=== PATIENT | male | born 1955 | race Caucasian/White ===

== ENCOUNTER → 2018-05-27 07:33 | Outpatient (CLI) | payer OTHER, SELFPAY ==
[2018-05-27 08:55] LABS: Alanine Aminotransferase 38 IU/L (21-72); Albumin 4.4 g/dL (3.5-5.0); Albumin Globulin Ratio 1.6 (1.0-2.8); Alkaline Phosphatase 93 U/L (38-126); Aspartate Aminotransferase 29 IU/L (17-59); BUN Creatinine Ratio 17.7 (6-22); Bilirubin Total 0.4 mg/dL (0.2-1.3); Blood Urea Nitrogen 23 mg/dL (9-20); Calcium 8.7 mg/dL (8.4-10.2); Carbon Dioxide 27 mmol/L (22-32); Chloride 103 mmol/L (98-107); Cholesterol 178 mg/dL (140-199); Estimated Glomerular Filt Rate 55.6 mL/min (>60); Globulin 2.8 g/dL (1.7-4.1); Glucose 106 mg/dL (80-110); HDL Cholesterol 30 mg/dL (40-60); HEMOLYSIS < 15 (0-50); LDL Cholesterol Calculated 129 mg/dL (<100); Potassium 4.4 mmol/L (3.4-5.1); Sodium 139 mmol/L (137-145); Total Protein 7.2 g/dL (6.3-8.2); Triglycerides 96 mg/dL (35-150); Uric Acid 7.4 mg/dL (3.5-8.5)
[2018-05-27 09:19] LABS: Prostate Specific Antigen 9.74 ng/mL (0.10-4.00)
[2018-05-27 09:37] LABS: Vitamin B12 801 pg/mL (239-931)
== END ==
DX: I10 Essential (primary) hypertension (principal); K21.9 Gastro-esophageal reflux disease without esophagitis; M54.5 Low back pain
CPT/HCPCS: 36415; 80053; 80061; 82607; 84153; 84550

== ENCOUNTER → 2019-08-09 08:14 | Outpatient (CLI) | payer OTHER, SELFPAY ==
--- NOTE | 2019-08-09 | DI.US.S_ITS ---
PROCEDURE: US ABD AORTA ANEURYSM SCREEN INDICATIONS: PERSONAL HISTORY OF NICOTINE USE TECHNIQUE: Real time scanning was performed of the aorta and iliac arteries, with image documentation. COMPARISON: None. FINDINGS: Aorta: Proximal aortic diameter measures 2.7 cm. Mid-aorta measures 1.7 cm. Distal aortic diameter is 1.2 cm. Iliac arteries: Right common iliac artery measures 1.0 cm. Left common iliac artery measures 0.9 cm. IMPRESSION: No aneurysm identified Dictated by: Dusty Horvath M.D. on 08/09/2019 at 11:14 Approved by: Dusty Horvath M.D. on 08/09/2019 at 11:15
== END ==
PROVIDERS: PCP Physician Assistant; Referring Provider Physician Assistant; Visit Provider Physician Assistant
DX: Z13.6 Encounter for screening for cardiovascular disorders (principal); Z87.891 Personal history of nicotine dependence
CPT/HCPCS: 76706

== ENCOUNTER → 2021-11-19 08:10 | Outpatient (CLI) | payer OTHER, SELFPAY ==
--- NOTE | 2021-11-19 | DI.RAD.S_ITS ---
PROCEDURE: FL JOINT INJECTION LARGE LT INDICATIONS: PAIN IN LEFT SHOULDER COMPARISON: None. TECHNIQUE: The indications, alternatives, benefits, risks, and complications of the procedure were explained to the patient. Written informed consent was obtained and placed in the chart. The patient was placed in an appropriate position on the fluoroscopy table, and a site was chosen for percutaneous access under fluoroscopic guidance. The site was prepped and draped in a sterile fashion. Local anesthetic was administered using a 1% lidocaine solution. A hypodermic or spinal needle was then used to access the symptomatic joint. Intra-articular location of the needle tip was confirmed by injecting a small amount of contrast, followed by steroid administration. The needle was then withdrawn, and a bandage applied to the puncture site. FINDINGS: Joint injected: Left shoulder Medications injected: 4 mL of 40 mg/mL Kenalog and 0.5% Ropivacaine mixture. Patient's pain before injection: 3 out of 10. Patient's pain after injection: 0 out of 10. Complications: None. IMPRESSION: Successful fluoroscopically guided administration of steroid and anaesthetic solution into the left shoulder joint. Dictated by: Juan Manuel Brown M.D. on 11/19/2021 at 9:53 Approved by: Juan Manuel Brown M.D. on 11/19/2021 at 10:16
== END ==
PROVIDERS: PCP Physician Assistant; Referring Provider Physician Assistant; Visit Provider Physician Assistant
DX: M25.512 Pain in left shoulder (principal)
CPT/HCPCS: 20610

== ENCOUNTER 2022-06-27 11:59 | Emergency (ER) | payer OTHER, SELFPAY ==
[2022-06-27] VITALS (8 sets, daily range): BP systolic 103–119; BP diastolic 51–78; PULSE 87–102; RESP 16–30; TEMP 36.8; O2SAT 95–97
--- NOTE | 2022-06-27 12:09 | DI.RAD.S_ITS ---
PROCEDURE: XR CHEST 1V INDICATIONS: Shortness of breath TECHNIQUE: One view of the chest was acquired. COMPARISON: None. FINDINGS: Surgical changes and devices: None. Lungs and pleura: Lungs are clear. No pleural effusions or pneumothorax. Mediastinum: Mediastinal contours appear normal. Heart size is normal. Bones and chest wall: No suspicious bony lesions. Overlying soft tissues appear unremarkable. IMPRESSION: No acute process. Dictated by: Roselyn Valdes M.D. on 06/27/2022 at 11:47 Approved by: Roselyn Valdes M.D. on 06/27/2022 at 11:47
--- NOTE | 2022-06-27 12:21 | ED.SOB ---
HPI - SOB/Dyspnea <STONEY Dobbs - Last Filed: 06/27/22 14:28> General Chief Complaint: Shortness of Breath/Dyspnea Stated Complaint: difficulty breathing Time Seen by Provider: 06/27/22 12:11 Source: patient Mode of arrival: Ambulatory Limitations: no limitations History of Present Illness HPI Narrative: This is a 66-year-old gentleman who denies history of medical problems other than hypertension which he takes lisinopril for and presents to the emergency department today complaining of shortness of breath, chest pain with coughing, a cough and fatigue with last few days. He endorses having sore muscles in his neck and back, denies chest pain but endorses pain with deep inspiration and coughing. He says he has congestion, feels short of breath with exertion and states that he has been wheezing. He use his significant other's albuterol inhaler last night and states that it helped him and he felt better afterwards like he could breathe a bigger breath. He denies fevers, nausea, vomiting, diarrhea, chills, diaphoresis. He denies any radiation of his pain for which he states is only there intermittently with coughing. He [facility] care [facility], is a previous smoker, PCP is Dr. Diaz. Denies sleep apnea or CPAP use. Related Data Home Medications Medication Instructions Recorded Confirmed lisinopril 10 mg tablet 10 mg PO DAILY 06/27/22 06/27/22 Previous Rx's Medication Instructions Recorded albuterol sulfate 90 mcg/actuation 1 puff inhalation QID PRN 06/27/22 aerosol inhaler shortness of breath or wheezing #8.5 grams benzonatate 200 mg capsule 200 mg PO BID PRN cough #20 caps 06/27/22 cetirizine 10 mg tablet 10 mg PO BEDTIME PRN congestion 06/27/22 #20 tabs guaifenesin 600 mg tablet, 600 mg PO BID #20 tabs 06/27/22 extended release 12 hr (Mucinex) inhalational spacing device #1 ea 06/27/22 (Aerochamber MV spacer) Allergies Allergy/AdvReac Type Severity Reaction Status Date / Time No Known Drug Allergies Allergy Verified 06/27/22 12:14 Review of Systems <STONEY Dobbs - Last Filed: 06/27/22 14:28> Review of Systems ROS Unobtainable: All systems reviewed & are unremarkable except as noted in HPI and below Patient History <STONEY Dobbs - Last Filed: 06/27/22 14:28> Medical History (Updated 06/27/22 @ 14:00 by STONEY Dobbs) Hypertension Social History Smoking Status: Former smoker Smoking Status: Former smoker alcohol intake frequency: 0-2 drinks per day Substance Use Type: does not use Exam <STONEY Dobbs - Last Filed: 06/27/22 14:28> Narrative Exam Narrative: Reviewed vitals signs and nursing notes. General: Pleasant, sitting upright, in no acute distress, well groomed, afebrile HEENT: symmetrical facial expressions, moist mucous membranes, neck is supple CV tachycardic rate and regular rhythm, rate 102, bilateral radial pulses palpable and equal, no diaphoresis or lower extremity edema, warm extremities Respiratory: Mild tachypnea, O2 sats 93-94% on room air before DuoNeb, mild crackles versus atelectasis to the left lower lobe but clears with coughing GI: abdomen soft, nondistended, bowel sounds active throughout [place], no masses MSK: moves all extremities, no weakness, normal tone, ambulatory without deficit Skin: brisk capillary refill, without rash or wound Neuro: clear speech and normal cognition, A&O x3, GCS 15, no focal motor or sensation deficits Initial Vital Signs Initial Vital Signs: Vital Signs Temperature 98.3 F 06/27/22 12:00 Pulse Rate 102 H 06/27/22 12:00 Respiratory Rate 20 06/27/22 12:00 Blood Pressure 118/78 06/27/22 12:00 Pulse Oximetry 97 06/27/22 12:00 Oxygen Delivery Method Room Air 06/27/22 12:00 <Patel Fuentes DO - Last Filed: 06/28/22 07:53> Initial Vital Signs Initial Vital Signs: Vital Signs Temperature 98.3 F 06/27/22 12:00 Pulse Rate 102 H 06/27/22 12:00 Respiratory Rate 20 06/27/22 12:00 Blood Pressure 118/78 06/27/22 12:00 Pulse Oximetry 97 06/27/22 12:00 Oxygen Delivery Method Room Air 06/27/22 12:00 Course <FABRICE DobbsP - Last Filed: 06/27/22 14:28> Orders Ordered: Discontinued Medications Acetaminophen (Acetaminophen 325 Mg Tablet) 975 mg PO NOW ONE Stop: 06/27/22 13:27 Last Admin: 06/27/22 13:34 Dose: 975 mg Documented By: RL Albuterol/Ipratropium (Albuterol/Ipratropium 3 Ml Ampul) 3 ml INH NOW ONE Stop: 06/27/22 12:18 Last Admin: 06/27/22 12:27 Dose: 3 ml Documented By: WILLIEF Dexamethasone (Dexamethasone 10 Mg/Ml Vial) 10 mg PO NOW ONE Stop: 06/27/22 13:24 Last Admin: 06/27/22 13:34 Dose: 10 mg Documented By: RL Sodium Chloride (Normal Saline 0.9%) 1,000 mls @ 1,000 mls/hr IV BOLUS ONE Stop: 06/27/22 14:24 Last Infusion: 06/27/22 14:20 Dose: 0 mls/hr Documented By: Admin: 06/27/22 13:33 Dose: 1,000 mls/hr Documented By: RL Vital Signs Vital signs: Vital Signs - 8 hr 06/27/22 12:00 Temperature 98.3 F Pulse Rate 102 H Respiratory Rate 20 Blood Pressure 118/78 Pulse Oximetry 97 Oxygen Delivery Method Room Air <Patel Fuentes DO - Last Filed: 06/28/22 07:53> Orders Ordered: Discontinued Medications Acetaminophen (Acetaminophen 325 Mg Tablet) 975 mg PO NOW ONE Stop: 06/27/22 13:27 Last Admin: 06/27/22 13:34 Dose: 975 mg Documented By: RL Albuterol/Ipratropium (Albuterol/Ipratropium 3 Ml Ampul) 3 ml INH NOW ONE Stop: 06/27/22 12:18 Last Admin: 06/27/22 12:27 Dose: 3 ml Documented By: WILLIEF Dexamethasone (Dexamethasone 10 Mg/Ml Vial) 10 mg PO NOW ONE Stop: 06/27/22 13:24 Last Admin: 06/27/22 13:34 Dose: 10 mg Documented By: RL Sodium Chloride (Normal Saline 0.9%) 1,000 mls @ 1,000 mls/hr IV BOLUS ONE Stop: 06/27/22 14:24 Last Infusion: 06/27/22 14:20 Dose: 0 mls/hr Documented By: Admin: 06/27/22 13:33 Dose: 1,000 mls/hr Documented By: RL Vital Signs Vital signs: Vital Signs - 8 hr 06/27/22 12:00 Temperature 98.3 F Pulse Rate 102 H Respiratory Rate 20 Blood Pressure 118/78 Pulse Oximetry 97 Oxygen Delivery Method Room Air MDM - SOB/Dyspnea <STONEY Dobbs - Last Filed: 06/27/22 14:28> Lab Data 06/27/22 12:14 06/27/22 12:14 Labs: Lab Results 06/27/22 06/27/22 06/27/22 Range/Units 12:14 12:14 12:14 WBC 8.1 (4.5-11.0) X10^3/uL RBC 4.78 (4.5-5.9) X10^6/uL Hgb 14.6 (13.5-17.5) g/dL Hct 42.5 (41-53) % MCV 88.9 (80-100) fL MCH 30.6 (26-34) PG MCHC 34.4 (30-36) % RDW 12.8 (11.6-14.8) % Plt Count 198 (150-400) X10^3/uL Neut % (Auto) 70.8 (50-75) % Lymph % (Auto) 13.8 L (25-40) % [place] % (Auto) 11.9 (3-14) % Eos % (Auto) 2.9 (2-4) % Baso % (Auto) 0.6 (0-2) % Neut # (Auto) 5800 (5314-0198) /uL Lymph # (Auto) 1100 (0641-0952) /uL [place] # (Auto) 1000 H (0-900) /uL Eos # (Auto) 200 (0-450) /uL Baso # (Auto) 100 (0-100) /uL PT Cancelled INR Cancelled D-Dimer (<500) ng/ml Sodium 139 (137-145) mmol/L Potassium 3.9 (3.4-5.1) mmol/L Chloride 102 (98-107) mmol/L Carbon Dioxide 28 (22-32) mmol/L BUN 32 H (9-20) mg/dL Creatinine 1.68 H (0.66-1.25) mg/dL Estimated GFR 44 L (>60) mL/min BUN/Creatinine Ratio 19.0 (6-22) Glucose 93 (80-110) mg/dL Lactate (0.7-2.1) mmol/L Calcium 9.6 (8.4-10.2) mg/dL Total Bilirubin 0.8 (0.2-1.3) mg/dL AST 31 (17-59) IU/L ALT 33 (<50) IU/L Alkaline Phosphatase 97 (38-126) U/L Troponin I < 0.012 (0.01-0.034) ng/mL NT-Pro-B Natriuret Pep Cancelled Total Protein 7.9 (6.3-8.2) g/dL Albumin 4.5 (3.5-5.0) g/dL Globulin 3.4 (1.7-4.1) g/dL Albumin/Globulin Ratio 1.3 (1.0-2.8) Lipase (23-300) U/L 06/27/22 06/27/22 06/27/22 Range/Units 12:14 12:14 12:14 WBC (4.5-11.0) X10^3/uL RBC (4.5-5.9) X10^6/uL Hgb (13.5-17.5) g/dL Hct (41-53) % MCV (80-100) fL MCH (26-34) PG MCHC (30-36) % RDW (11.6-14.8) % Plt Count (150-400) X10^3/uL Neut % (Auto) (50-75) % Lymph % (Auto) (25-40) % [place] % (Auto) (3-14) % Eos % (Auto) (2-4) % Baso % (Auto) (0-2) % Neut # (Auto) (5235-3220) /uL Lymph # (Auto) (7859-6183) /uL [place] # (Auto) (0-900) /uL Eos # (Auto) (0-450) /uL Baso # (Auto) (0-100) /uL PT INR D-Dimer 360 (<500) ng/ml Sodium (137-145) mmol/L Potassium (3.4-5.1) mmol/L Chloride (98-107) mmol/L Carbon Dioxide (22-32) mmol/L BUN (9-20) mg/dL Creatinine (0.66-1.25) mg/dL Estimated GFR (>60) mL/min BUN/Creatinine Ratio (6-22) Glucose (80-110) mg/dL Lactate 1.4 (0.7-2.1) mmol/L Calcium (8.4-10.2) mg/dL Total Bilirubin (0.2-1.3) mg/dL AST (17-59) IU/L ALT (<50) IU/L Alkaline Phosphatase (38-126) U/L Troponin I (0.01-0.034) ng/mL NT-Pro-B Natriuret Pep Total Protein (6.3-8.2) g/dL Albumin (3.5-5.0) g/dL Globulin (1.7-4.1) g/dL Albumin/Globulin Ratio (1.0-2.8) Lipase 130 (23-300) U/L 06/27/22 Range/Units 13:40 WBC (4.5-11.0) X10^3/uL RBC (4.5-5.9) X10^6/uL Hgb (13.5-17.5) g/dL Hct (41-53) % MCV (80-100) fL MCH (26-34) PG MCHC (30-36) % RDW (11.6-14.8) % Plt Count (150-400) X10^3/uL Neut % (Auto) (50-75) % Lymph % (Auto) (25-40) % [place] % (Auto) (3-14) % Eos % (Auto) (2-4) % Baso % (Auto) (0-2) % Neut # (Auto) (0099-3756) /uL Lymph # (Auto) (0067-8275) /uL [place] # (Auto) (0-900) /uL Eos # (Auto) (0-450) /uL Baso # (Auto) (0-100) /uL PT INR D-Dimer (<500) ng/ml Sodium (137-145) mmol/L Potassium (3.4-5.1) mmol/L Chloride (98-107) mmol/L Carbon Dioxide (22-32) mmol/L BUN (9-20) mg/dL Creatinine (0.66-1.25) mg/dL Estimated GFR (>60) mL/min BUN/Creatinine Ratio (6-22) Glucose (80-110) mg/dL Lactate (0.7-2.1) mmol/L Calcium (8.4-10.2) mg/dL Total Bilirubin (0.2-1.3) mg/dL AST (17-59) IU/L ALT (<50) IU/L Alkaline Phosphatase (38-126) U/L Troponin I 0.012 (0.01-0.034) ng/mL NT-Pro-B Natriuret Pep Total Protein (6.3-8.2) g/dL Albumin (3.5-5.0) g/dL Globulin (1.7-4.1) g/dL Albumin/Globulin Ratio (1.0-2.8) Lipase (23-300) U/L Imaging Data Chest x-ray: Radiologist's Impression: PROCEDURE:? XR CHEST 1V ? INDICATIONS:? Shortness of breath ? TECHNIQUE:? One view of the chest was acquired.? ? COMPARISON:? None. ? FINDINGS:? ? Surgical changes and devices:? None.? ? Lungs and pleura:? Lungs are clear.? No pleural effusions or pneumothorax.? ? Mediastinum:? Mediastinal contours appear normal.? Heart size is normal.? ? Bones and chest wall:? No suspicious bony lesions.? Overlying soft tissues appear unremarkable.? ? IMPRESSION:? No acute process. ? ? Dictated by: Roselyn Valdes M.D. on 06/27/2022 at 11:47 ? ? Approved by: Roselyn Valdes M.D. on 06/27/2022 at 11:47 ? ECG Data Interpretation: EKG independently reviewed by myself at [1220] reveals sinus tachycardia at 99, normal axis, nonspecific ST changes, regular intervals. No STEMI or acute ischemic changes. No prior EKGs on record MDM Narrative Medical decision making narrative: Chief Complaint: Shortness of breath Independent historian: Patient Multiple etiologies for patient's symptoms considered including, but not limited to: Acute viral illness, bronchitis, pneumonia, COPD exacerbation, CHF exacerbation, pleural effusions, pneumonitis, PE, ACS, dehydration, allergic reaction I have independently reviewed the patient's vital signs and nursing notes as well as prior records if available. Pertinent records include: Patient receives his care at the [facility], no prior medical notes for review, patient states he is only had joint steroid injection here My EKG interpretation: Sinus tachycardia rate 99, no acute ischemia My interpretation of lab studies: CBC with lymphopenia suggesting possible viral illness, CMP shows worsening creatinine last result in 2019 of 1.3 with a BUN of 23 at that time, today's BUN is 32 with a creatinine of 1.68 and a GFR 44. Ordered 1 L of normal saline, his lactate is 1.4, initial troponin is not elevated at 0.012, repeat troponin is not elevated, D-dimer of 360. Normal lipase My interpretation of imaging: Chest x-ray is negative for focal opacity, pleural effusion or pneumothorax Consultations: After DuoNeb, patient reports that he feels much better and is able to take deep breaths, denies any chest tightness, states that he is breathing much more comfortably now. He is tolerating p.o., has a wet sounding cough Patient's heart score is3 points, for age and 1 risk factor: Hypertension Course of care: DuoNeb has patient's symptoms improve, he was given Decadron, 1 L of normal saline, he refused the COVID test on multiple occasions stating that he does not have the symptoms. I believe he has a upper respiratory viral illness since symptoms related to this. He is not hypoxic, was discharged home with an MDI of albuterol and a spacer. Social considerations that may affect disposition: none Questions are addressed and there is agreement with the plan and for follow-up. I consulted with the ED attending physician Dr. Fuentes as needed for higher level of care considerations and they were available for discussion and recommendations regarding plan of care and diagnostic testing. Patient is appropriate for outpatient management. <Patel Fuentes, DO - Last Filed: 06/28/22 07:53> Lab Data Labs: Lab Results 06/27/22 06/27/22 06/27/22 Range/Units 12:14 12:14 12:14 WBC 8.1 (4.5-11.0) X10^3/uL RBC 4.78 (4.5-5.9) X10^6/uL Hgb 14.6 (13.5-17.5) g/dL Hct 42.5 (41-53) % MCV 88.9 (80-100) fL MCH 30.6 (26-34) PG MCHC 34.4 (30-36) % RDW 12.8 (11.6-14.8) % Plt Count 198 (150-400) X10^3/uL Neut % (Auto) 70.8 (50-75) % Lymph % (Auto) 13.8 L (25-40) % [place] % (Auto) 11.9 (3-14) % Eos % (Auto) 2.9 (2-4) % Baso % (Auto) 0.6 (0-2) % Neut # (Auto) 5800 (7612-6706) /uL Lymph # (Auto) 1100 (0763-2352) /uL [place] # (Auto) 1000 H (0-900) /uL Eos # (Auto) 200 (0-450) /uL Baso # (Auto) 100 (0-100) /uL PT Cancelled INR Cancelled D-Dimer (<500) ng/ml Sodium 139 (137-145) mmol/L Potassium 3.9 (3.4-5.1) mmol/L Chloride 102 (98-107) mmol/L Carbon Dioxide 28 (22-32) mmol/L BUN 32 H (9-20) mg/dL Creatinine 1.68 H (0.66-1.25) mg/dL Estimated GFR 44 L (>60) mL/min BUN/Creatinine Ratio 19.0 (6-22) Glucose 93 (80-110) mg/dL Lactate (0.7-2.1) mmol/L Calcium 9.6 (8.4-10.2) mg/dL Total Bilirubin 0.8 (0.2-1.3) mg/dL AST 31 (17-59) IU/L ALT 33 (<50) IU/L Alkaline Phosphatase 97 (38-126) U/L Troponin I < 0.012 (0.01-0.034) ng/mL NT-Pro-B Natriuret Pep Cancelled Total Protein 7.9 (6.3-8.2) g/dL Albumin 4.5 (3.5-5.0) g/dL Globulin 3.4 (1.7-4.1) g/dL Albumin/Globulin Ratio 1.3 (1.0-2.8) Lipase (23-300) U/L 06/27/22 06/27/22 06/27/22 Range/Units 12:14 12:14 12:14 WBC (4.5-11.0) X10^3/uL RBC (4.5-5.9) X10^6/uL Hgb (13.5-17.5) g/dL Hct (41-53) % MCV (80-100) fL MCH (26-34) PG MCHC (30-36) % RDW (11.6-14.8) % Plt Count (150-400) X10^3/uL Neut % (Auto) (50-75) % Lymph % (Auto) (25-40) % [place] % (Auto) (3-14) % Eos % (Auto) (2-4) % Baso % (Auto) (0-2) % Neut # (Auto) (2333-5765) /uL Lymph # (Auto) (2487-8813) /uL [place] # (Auto) (0-900) /uL Eos # (Auto) (0-450) /uL Baso # (Auto) (0-100) /uL PT INR D-Dimer 360 (<500) ng/ml Sodium (137-145) mmol/L Potassium (3.4-5.1) mmol/L Chloride (98-107) mmol/L Carbon Dioxide (22-32) mmol/L BUN (9-20) mg/dL Creatinine (0.66-1.25) mg/dL Estimated GFR (>60) mL/min BUN/Creatinine Ratio (6-22) Glucose (80-110) mg/dL Lactate 1.4 (0.7-2.1) mmol/L Calcium (8.4-10.2) mg/dL Total Bilirubin (0.2-1.3) mg/dL AST (17-59) IU/L ALT (<50) IU/L Alkaline Phosphatase (38-126) U/L Troponin I (0.01-0.034) ng/mL NT-Pro-B Natriuret Pep Total Protein (6.3-8.2) g/dL Albumin (3.5-5.0) g/dL Globulin (1.7-4.1) g/dL Albumin/Globulin Ratio (1.0-2.8) Lipase 130 (23-300) U/L 06/27/22 Range/Units 13:40 WBC (4.5-11.0) X10^3/uL RBC (4.5-5.9) X10^6/uL Hgb (13.5-17.5) g/dL Hct (41-53) % MCV (80-100) fL MCH (26-34) PG MCHC (30-36) % RDW (11.6-14.8) % Plt Count (150-400) X10^3/uL Neut % (Auto) (50-75) % Lymph % (Auto) (25-40) % [place] % (Auto) (3-14) % Eos % (Auto) (2-4) % Baso % (Auto) (0-2) % Neut # (Auto) (3408-5719) /uL Lymph # (Auto) (1162-5591) /uL [place] # (Auto) (0-900) /uL Eos # (Auto) (0-450) /uL Baso # (Auto) (0-100) /uL PT INR D-Dimer (<500) ng/ml Sodium (137-145) mmol/L Potassium (3.4-5.1) mmol/L Chloride (98-107) mmol/L Carbon Dioxide (22-32) mmol/L BUN (9-20) mg/dL Creatinine (0.66-1.25) mg/dL Estimated GFR (>60) mL/min BUN/Creatinine Ratio (6-22) Glucose (80-110) mg/dL Lactate (0.7-2.1) mmol/L Calcium (8.4-10.2) mg/dL Total Bilirubin (0.2-1.3) mg/dL AST (17-59) IU/L ALT (<50) IU/L Alkaline Phosphatase (38-126) U/L Troponin I 0.012 (0.01-0.034) ng/mL NT-Pro-B Natriuret Pep Total Protein (6.3-8.2) g/dL Albumin (3.5-5.0) g/dL Globulin (1.7-4.1) g/dL Albumin/Globulin Ratio (1.0-2.8) Lipase (23-300) U/L Discharge Plan Departure Patient Disposition: Home Clinical Impression: Viral upper respiratory infection, Shortness of breath Instructions: DI for Viral Upper Respiratory Infection -- Adult, DI for Shortness of Breath Activity Restrictions/Additional Instructions: *You have been diagnosed with an upper respiratory viral infection which sister to get better in a couple of days. Please take Zyrtec nightly for your congestion and phlegm. Please use Mucinex for productive cough, albuterol for shortness of breath and use with a spacer. Please stay hydrated, return to the emergency department for fever, chills, worsening shortness of breath. I have given you Tessalon Perles to use for frequent cough. Please come back if you get worse, hope you feel better soon. *What to do: *Please continue to take your regular medications as directed. [ x] New medication prescriptions sent to your pharmacy: [[facility] ] [ ] New medication written as a paper prescription [ ] No new medications given *Please call and schedule follow up with your primary care provider in 2-3 days, at least for an update. Let them know you were seen in the Emergency Department for the above problem. We will electronically transmit a record of today's note if your PCP or specialist is in our system. *If you do not have a primary care provider please contact [phone] to establish care with one of the [facility] primary care providers. *Return to the Emergency Department for worsening symptoms, inability to keep liquids down, fever greater than 101F, chills, or other concerning symptom. Prescriptions: New cetirizine 10 mg tablet 10 mg PO BEDTIME PRN (Reason: congestion) Qty: 20 0RF guaifenesin [Mucinex] 600 mg tablet extended release 12hr 600 mg PO BID Qty: 20 0RF benzonatate 200 mg capsule 200 mg PO BID PRN (Reason: cough) Qty: 20 0RF albuterol sulfate 90 mcg/actuation HFA aerosol inhaler 1 puff inhalation QID PRN (Reason: shortness of breath or wheezing) Qty: 8.5 1RF (DME) Aerochamber MV Spacer See Rx Instructions .Route Qty: 1 0RF Rx Instructions: As directed No Action lisinopril 10 mg tablet 10 mg PO DAILY Patient Comments: TAKE 1 TABLET BY MOUTH EVERY DAY Referrals: Brock Diaz PA-C [Primary Care Provider] - Stand Alone Forms: Patient Portal/API <Patel Fuentes DO - Last Filed: 06/28/22 07:53> Cosign ED Attending Natalioature Attestation: I was immediately available in the department for consultation. Documentation has been reviewed. I agree with assessment and plan.
[2022-06-27 12:27] LABS: Add Manual Diff / Slide Review NO; Basophils Absolute Auto 100 /uL (0-100); Basophils Percent Auto 0.6 % (0-2); Eosinophils Absolute Auto 200 /uL (0-450); Eosinophils Percent Auto 2.9 % (2-4); Hematocrit 42.5 % (41-53); Hemoglobin 14.6 g/dL (13.5-17.5); Lymphocytes Absolute Auto 1100 /uL (1100-4500); Lymphocytes Percent Auto 13.8 % (25-40); Mean Corpuscular HGB Conc 34.4 % (30-36); Mean Corpuscular Hemoglobin 30.6 PG (26-34); Mean Corpuscular Volume 88.9 fL (80-100); Monocytes Absolute Auto 1000 /uL (0-900); Monocytes Percent Auto 11.9 % (3-14); Neutrophils Absolute Auto 5800 /uL (1500-7000); Neutrophils Percent Auto 70.8 % (50-75); Platelet Count 198 X10^3/uL (150-400); Red Blood Cell Count 4.78 X10^6/uL (4.5-5.9); Red Cell Distribution Width 12.8 % (11.6-14.8); White Blood Cell Count 8.1 X10^3/uL (4.5-11.0)
[2022-06-27] MEDS: ALBUTEROL/IPRATROPIUM 3 ML AMPUL INH (12:27)
[2022-06-27 12:35] LABS: Lactate (Lactic Acid) 1.4 mmol/L (0.7-2.1); Lipase 130 U/L (23-300)
[2022-06-27 12:36] LABS: Alanine Aminotransferase 33 IU/L (<50); Albumin 4.5 g/dL (3.5-5.0); Albumin Globulin Ratio 1.3 (1.0-2.8); Alkaline Phosphatase 97 U/L (38-126); Aspartate Aminotransferase 31 IU/L (17-59); Bilirubin Total 0.8 mg/dL (0.2-1.3); Blood Urea Nitrogen 32 mg/dL (9-20); Calcium 9.6 mg/dL (8.4-10.2); Carbon Dioxide 28 mmol/L (22-32); Chloride 102 mmol/L (98-107); Estimated Glomerular Filt Rate 44 mL/min (>60); Globulin 3.4 g/dL (1.7-4.1); Glucose 93 mg/dL (80-110); HEMOLYSIS < 15 (0-50); Potassium 3.9 mmol/L (3.4-5.1); Sodium 139 mmol/L (137-145); Total Protein 7.9 g/dL (6.3-8.2)
[2022-06-27 12:48] LABS: Troponin I < 0.012 ng/mL (0.01-0.034)
[2022-06-27] MEDS: SODIUM CHLORIDE 0.9% 1,000 ML 1000 ML IV (13:33)
[2022-06-27] MEDS: DEXAMETHASONE 10 MG/ML VIAL PO (13:34)
[2022-06-27] MEDS: ACETAMINOPHEN 325 MG TABLET 975 MG PO (13:34)
[2022-06-27 13:42] LABS: D Dimer 360 ng/ml (<500)
[2022-06-27 14:09] LABS: Troponin I 0.012 ng/mL (0.01-0.034)
== END 2022-06-27 14:25 | disposition home or self-care (01) ==
PROVIDERS: Emergency Medicine; Emergency Provider Nurse Practitioner Critical Care Medicine; PCP Physician Assistant
DX: J06.9 Acute upper respiratory infection, unspecified (principal); R06.02 Shortness of breath
CPT/HCPCS: 36415; 71045; 80053; 83605; 83690; 84484; 85025; 85379; 93005; 94150; 94640; 99284; 99285; J1100

== ENCOUNTER → 2022-09-17 13:17 | Outpatient (CLI) | payer OTHER, SELFPAY | PROVIDERS: Family Provider Physician Assistant; PCP Physician Assistant; Referring Provider Physician Assistant; Visit Provider Physician Assistant | DX: R20.2 Paresthesia of skin (principal) | CPT/HCPCS: 95886; 95910 ==

== ENCOUNTER → 2022-10-20 07:45 | Outpatient (CLI) | payer OTHER, SELFPAY ==
--- NOTE | 2022-10-20 | DI.US.S_ITS ---
PROCEDURE: US ABDOMEN LIMITED INDICATIONS: UMBILICUS LUMP TECHNIQUE: Real-time focused scanning was performed of the abdomen, with image documentation. COMPARISON: None. FINDINGS: Fat containing reducible midline hernia is present. Neck measures 5.7 mm. IMPRESSION: Fat containing reducible ventral hernia. Dictated by: Susan Pelayo M.D. on 10/20/2022 at 16:06 Approved by: Susan Pelayo M.D. on 10/20/2022 at 16:07
== END ==
PROVIDERS: Family Provider Physician Assistant; PCP Physician Assistant; Referring Provider Physician Assistant; Visit Provider Physician Assistant
DX: K43.9 Ventral hernia without obstruction or gangrene (principal)
CPT/HCPCS: 76705

== ENCOUNTER 2024-04-10 19:16 | Emergency (ER) | payer OTHER, SELFPAY ==
[2024-04-10] VITALS (7 sets, daily range): BP systolic 133–138; BP diastolic 76–87; PULSE 92–104; RESP 17; TEMP 37.1; O2SAT 94–99; BMI 29.9
--- NOTE | 2024-04-10 20:12 | EKG_ITS ---
[place] [id number] [place] [id number] Test Date: 2024-04-10 Pat Name: Adrian Samuels Department: [facility] Room: Gender: Male [place] [employer] Person: MC MATHEW : 1955 Requested By: Order Number: [id number] Reading MD: Leoncio Hawk Measurements Intervals Cornelius Rate: 102 P: 59 MI: 146 QRS: -45 QRSD: 96 T: 53 QT: 372 QTc: 484 Interpretive Statements Sinus tachycardia with premature atrial complexes Pulmonary disease pattern Left anterior fascicular block Cannot rule out Inferior infarct , age undetermined Electronically Signed On 04-11-2024 18:28:45 PST by Leoncio Hawk
[2024-04-10 20:24] LABS: Add Manual Diff / Slide Review NO; Basophils Absolute Auto 100 /uL (0-100); Eosinophils Absolute Auto 200 /uL (0-450); Eosinophils Percent Auto 1.8 % (2-4); Hematocrit 41.7 % (41-53); Hemoglobin 14.4 g/dL (13.5-17.5); Lymphocytes Absolute Auto 2000 /uL (1100-4500); Lymphocytes Percent Auto 20.2 % (25-40); Mean Corpuscular HGB Conc 34.5 % (30-36); Mean Corpuscular Hemoglobin 29.6 PG (26-34); Mean Corpuscular Volume 85.9 fL (80-100); Monocytes Absolute Auto 900 /uL (0-900); Monocytes Percent Auto 8.7 % (3-14); Neutrophils Absolute Auto 6800 /uL (1500-7000); Neutrophils Percent Auto 68.3 % (50-75); Platelet Count 252 X10^3/uL (150-400); Red Blood Cell Count 4.86 X10^6/uL (4.5-5.9); Red Cell Distribution Width 13.6 % (11.6-14.8)
[2024-04-10 20:36] LABS: Alanine Aminotransferase 30 IU/L (<50); Albumin 4.5 g/dL (3.5-5.0); Albumin Globulin Ratio 1.2 (1.0-2.8); Alkaline Phosphatase 273 U/L (38-126); Aspartate Aminotransferase 36 IU/L (17-59); BUN Creatinine Ratio 17.7 (6-22); Bilirubin Total 0.6 mg/dL (0.2-1.3); Blood Urea Nitrogen 22 mg/dL (9-20); Calcium 9.1 mg/dL (8.4-10.2); Carbon Dioxide 26 mmol/L (22-32); Chloride 98 mmol/L (98-107); Estimated Glomerular Filt Rate > 60 mL/min (>60); Globulin 3.8 g/dL (1.7-4.1); Glucose 123 mg/dL (80-110); HEMOLYSIS < 15 (0-50); Lipase 98 U/L (23-300); Potassium 3.3 mmol/L (3.4-5.1); Sodium 136 mmol/L (137-145); Total Protein 8.3 g/dL (6.3-8.2)
--- NOTE | 2024-04-10 22:40 | ED.ABDPAIN ---
HPI - Abdominal Pain General Chief Complaint: Abdominal Pain Stated Complaint: possible kidney infec? back and abd pain Time Seen by Provider: 04/10/24 22:40 Source: patient Mode of arrival: Ambulatory History of Present Illness HPI narrative: Is a 68-year-old male history of TURP now self catheterizations, hypertension presenting today with variety of symptoms. He reports that for the last couple days he has had pinpoint left-sided pain. He was just treated for a UTI he was and 1 antibiotic he just changed it over to amoxicillin they report that he finished the amoxicillin. No fever or chills. He also reports that started having some leg twitching more in the left than the right. No significant back pain. No fever or chills. Initially was sent to the ED to rule out kidney infection with his recent UTI. He was ongoing shoulder pain and neck pain which is chronic. I do not really want opiate medication he does not respond well to it. Related Data Home Medications Medication Instructions Recorded Confirmed lisinopril 10 mg tablet 10 mg PO DAILY 06/27/22 06/27/22 Previous Rx's Medication Instructions Recorded albuterol sulfate 90 mcg/actuation 1 puff inhalation QID PRN 06/27/22 aerosol inhaler shortness of breath or wheezing #8.5 grams benzonatate 200 mg capsule 200 mg PO BID PRN cough #20 caps 06/27/22 cetirizine 10 mg tablet 10 mg PO BEDTIME PRN congestion 06/27/22 #20 tabs guaifenesin 600 mg tablet, 600 mg PO BID #20 tabs 06/27/22 extended release 12 hr (Mucinex) inhalational spacing device #1 ea 06/27/22 (Aerochamber MV spacer) Allergies Allergy/AdvReac Type Severity Reaction Status Date / Time No Known Drug Allergies Allergy Verified 06/27/22 12:14 Patient History Medical History (Updated 04/10/24 @ 23:55 by Steph Anderson DO) Hypertension Social History Smoking Status: Former smoker Smoking Status: Former smoker alcohol intake frequency: 0-2 drinks per day Exam Initial Vital Signs Initial Vital Signs: Vital Signs Temperature 98.7 F 04/10/24 19:42 Pulse Rate 95 H 04/10/24 19:42 Respiratory Rate 17 04/10/24 19:42 Blood Pressure 133/87 04/10/24 19:42 Pulse Oximetry 99 04/10/24 19:42 Oxygen Delivery Method Room Air 04/10/24 19:42 GENERAL: Alert well-appearing 68-year-old male and in [no acute] distress. HEENT: Head atraumatic,EOMI, pupils reactive, face symmetric, [moist] mucous membranes CARDIOVASCULAR: Regular rate and rhythm without murmurs, rubs or gallops. RESPIRATORY: Breath sounds equal bilaterally, no wheezes rales or rhonchi. ABDOMEN: Soft, left side lateral pain pinpoint to touch no left lower quadrant pain no right lower quadrant pain no guarding no rebound : No CVA tenderness EXTREMITIES: Normal range of motion, no clubbing or edema. Neurovascularly intact Peripheral pulse of left leg is felt foot is warm NEUROLOGICAL: Alert and oriented x4.Normal gait and speech. Cranial nerves II through XII grossly intact. Involuntary muscle spasm of legs bilaterally SKIN: Warm, dry, no laceration, no petechiae, no rashes or lesions. Course Orders Ordered: ED Orders 04/10/24 19:58 EKG-12 Lead Stat 04/10/24 20:10 Complete Blood Count AUTO DIFF Stat Comprehensive Metabolic Panel Stat Lipase Stat 04/10/24 22:50 CT abdomen pelvis w con Stat Discontinued Medications Ketorolac Tromethamine (Ketorolac 30 Mg/Ml Vial) 15 mg IV NOW ONE Stop: 04/10/24 22:51 Last Admin: 04/10/24 23:12 Dose: 15 mg Documented By: Ondansetron HCl (Ondansetron 4 Mg/2 Ml Inj) 4 mg IV NOW PRN PRN Reason: Nausea And Vomiting Last Admin: 04/10/24 23:12 Dose: 4 mg Documented By: Ondansetron HCl (Ondansetron 4 Mg Odt) 4 mg PO NOW PRN PRN Reason: Nausea And Vomiting Vital Signs Vital signs: Vital Signs - 8 hr 04/10/24 21:50 04/10/24 21:51 04/10/24 21:51 Pulse Rate 98 H 97 H Blood Pressure 138/76 Pulse Oximetry 98 97 04/10/24 22:00 04/10/24 22:30 04/10/24 23:09 Pulse Rate 92 H 92 H Blood Pressure Pulse Oximetry 96 96 96 04/10/24 23:35 04/11/24 00:00 04/11/24 00:10 Pulse Rate 104 H 95 H Blood Pressure 138/76 Pulse Oximetry 94 94 MDM - Abdominal Pain Lab Data 04/10/24 20:10 04/10/24 20:10 Labs: Lab Results 04/10/24 Range/Units 20:10 WBC 10.0 (4.5-11.0) X10^3/uL RBC 4.86 (4.5-5.9) X10^6/uL Hgb 14.4 (13.5-17.5) g/dL Hct 41.7 (41-53) % MCV 85.9 (80-100) fL MCH 29.6 (26-34) PG MCHC 34.5 (30-36) % RDW 13.6 (11.6-14.8) % Plt Count 252 (150-400) X10^3/uL Neut % (Auto) 68.3 (50-75) % Lymph % (Auto) 20.2 L (25-40) % [place] % (Auto) 8.7 (3-14) % Eos % (Auto) 1.8 L (2-4) % Baso % (Auto) 1.0 (0-2) % Neut # (Auto) 6800 (8783-1422) /uL Lymph # (Auto) 2000 (5496-5861) /uL [place] # (Auto) 900 (0-900) /uL Eos # (Auto) 200 (0-450) /uL Baso # (Auto) 100 (0-100) /uL Sodium 136 L (137-145) mmol/L Potassium 3.3 L (3.4-5.1) mmol/L Chloride 98 (98-107) mmol/L Carbon Dioxide 26 (22-32) mmol/L BUN 22 H (9-20) mg/dL Creatinine 1.24 (0.66-1.25) mg/dL Estimated GFR > 60 (>60) mL/min BUN/Creatinine Ratio 17.7 (6-22) Glucose 123 H (80-110) mg/dL Calcium 9.1 (8.4-10.2) mg/dL Total Bilirubin 0.6 (0.2-1.3) mg/dL AST 36 (17-59) IU/L ALT 30 (<50) IU/L Alkaline Phosphatase 273 H (38-126) U/L Total Protein 8.3 H (6.3-8.2) g/dL Albumin 4.5 (3.5-5.0) g/dL Globulin 3.8 (1.7-4.1) g/dL Albumin/Globulin Ratio 1.2 (1.0-2.8) Lipase 98 (23-300) U/L Point of care testing: Urine Dip Bedside Urine Glucose Negative Bedside Urine Bilirubin - Negative Bedside Urine Ketone - Negative Urine Specific [place] 1.010 Bedside Urine Occult Blood - Negative Bedside Urine pH 6.0 Bedside Urine Protein - Negative Bedside Urine Urobilinogen - Negative Bedside Urine Nitrite - Negative Bedside Urine Leukocytes - Negative Esterase Imaging Data CT scan - abdomen/pelvis: Radiologist's Impression: PROCEDURE: CT ABDOMEN PELVIS W CON INDICATIONS: left flank pain TECHNIQUE: After the administration of intravenous contrast, axial sections acquired from the lung bases to the pubic symphysis. Coronal and sagittal reformats were performed. For radiation dose reduction, the following was used: automated exposure control, adjustment of mA and/or kV according to patient size. COMPARISON: None. FINDINGS: Image quality: Diagnostic. Lower Chest: No significant findings. ABDOMEN: Liver: No solid mass. Mild hepatic steatosis and slightly lobulated liver contour is seen. Gallbladder: No radiopaque gallstones or wall thickening. Biliary ducts: No biliary dilation. Pancreas: No ductal dilation. Spleen: Size is within normal limits. Adrenal Glands: No adrenal nodules. Kidneys and Ureters: There is mild left-sided hydronephrosis and hydroureter extending to the level of left UVJ . Mild bilateral perinephric fat stranding is seen. No right-sided renal stones or hydronephrosis. Stomach and Bowel: There is no bowel obstruction. No gastric or small bowel wall thickening. Appendix is not definitively seen. No focal inflammatory changes are seen in right lower quadrant abdomen. Extensive descending colon and sigmoid colon diverticulosis is seen without focal colonic wall thickening or pericolonic fat stranding. Peritoneum: No abnormal intraperitoneal fluid. No free air. Ventral Wall: No significant ventral hernia. Abdominal Nodes: No retroperitoneal or mesenteric adenopathy by size criteria. Vessels: Aorta and inferior vena cava are normal in size. PELVIS: Pelvic Organs: Enlarged prostate gland with mass effect on floor of urinary bladder is seen. Bladder: No bladder wall thickening, accounting for underdistention. Faint 1-2 mm hyperdensity in dependent portion of urinary bladder just distal to left UVJ is noted series 2, image 122. Pelvic Nodes: No enlarged lymph nodes. Miscellaneous: No inguinal hernias are seen. Bones: No aggressive osseous abnormality. IMPRESSION: 1. Finding may indicate a passed tiny 1-2 mm left-sided renal stone with mild residual left-sided hydronephrosis and hydroureter. Nonspecific mild bilateral perinephric fat stranding. No right-sided hydronephrosis or hydroureter. 2. Normal appearing urinary bladder. Enlarged prostate gland with mass effect on floor of urinary bladder. 3. Extensive colonic diverticulosis without CT evidence of acute diverticulitis. No free fluid or free air. Dictated by: Juan Manuel Brown M.D. on 04/10/2024 at 23:19 Approved by: Juan Manuel Brown M.D. on 04/10/2024 at 23:28 ECG Data Attestation: I personally reviewed and interpreted this ECG as follows: Prior ECG tracings: available for review Interpretation: Sinus rhythm rate 102 NV interval 146 QRS 96 QTC 484 PACs noted artifact noted no acute ST changes similar to prior MDM Narrative Medical decision making narrative: MDM CC: Abdominal pain Complicating co-morbidities: TURP self catheterizations Data collected from: Medical records reviewed: Minimal records available Differential considered: Musculoskeletal nephrolithiasis diverticulitis constipation Exam documented above, pertinent findings include: Pinpoint tenderness left-sided pain Lab Test results independently reviewed as above. Pertinent findings: No leukocytosis WBC 10 no anemia Sodium 136 potassium 3.3 chloride 98 carbon dioxide 26 BUN 22 creatinine 1.24 glucose 123 Bilirubin liver enzymes within normal limits Urinalysis negative for UTI Independently reviewed EKG as above no acute ischemia Imaging studies independently reviewed: CT abdomen pelvis shows possibly recently passed kidney stone 1-2 mm. Perinephric stranding Consultations: none Treatments: Toradol Re-evaluations: Feeling a little better Discussion: Patient is 68-year-old male who has urinary retention history of TURP self catheterizations recent UTI presenting to day with pinpoint left flank pain. It is reproducible to palpation. He reports his sometimes it is worse with movement. Pain is overall nonradiating. CT suggests possibly recent passed kidney stone however this does clinically correlate. Pain is really pinpoint lateral side he has no flank pain. Blood work has been reviewed which is overall reassuring no significant leukocytosis urinalysis also negative for infection. I do not think he is acute pyelonephritis. He just finished antibiotics would hold off further antibiotics for now. Patient and agree to this. He does have multiple other medical issues he does actually have some muscle twitching and leg shaking noted in the ED which they state is new. No clear explanation for this. However unlikely related to his abdominal discomfort. Reglan feet are warm with distal pedal pulses. This seems to be a muscle tremor. Discharge Plan Departure Patient Disposition: Home Clinical Impression: Abdominal pain Instructions: DI for Abdominal Pain-Adult Activity Restrictions/Additional Instructions: *You have been diagnosed with abdominal pain *What to do: At this time unclear what is causing your pain. I do think it might be musculoskeletal. CT did say possible kidney stone. No need for antibiotics at this time *Continue to take medications as directed *Follow up with your primary care provider in 2-3 days or call [phone] *Return to ER if you should have increasing abdominal pain nausea vomiting fever bloody stool [or] any new, worsening or concerning symptoms Prescriptions: No Action lisinopril 10 mg tablet 10 mg PO DAILY Patient Comments: TAKE 1 TABLET BY MOUTH EVERY DAY cetirizine 10 mg tablet 10 mg PO BEDTIME PRN (Reason: congestion) Qty: 20 0RF guaifenesin [Mucinex] 600 mg tablet extended release 12hr 600 mg PO BID Qty: 20 0RF benzonatate 200 mg capsule 200 mg PO BID PRN (Reason: cough) Qty: 20 0RF albuterol sulfate 90 mcg/actuation HFA aerosol inhaler 1 puff inhalation QID PRN (Reason: shortness of breath or wheezing) Qty: 8.5 1RF (DME) Aerochamber MV Spacer See Rx Instructions .Route Qty: 1 0RF Rx Instructions: As directed Referrals: Brock Diaz PA-C [Primary Care Provider] - Stand Alone Forms: Patient Portal/API/Survey
--- NOTE | 2024-04-10 22:50 | DI.CT.S_ITS ---
PROCEDURE: CT ABDOMEN PELVIS W CON INDICATIONS: left flank pain TECHNIQUE: After the administration of intravenous contrast, axial sections acquired from the lung bases to the pubic symphysis. Coronal and sagittal reformats were performed. For radiation dose reduction, the following was used: automated exposure control, adjustment of mA and/or kV according to patient size. COMPARISON: None. FINDINGS: Image quality: Diagnostic. Lower Chest: No significant findings. ABDOMEN: Liver: No solid mass. Mild hepatic steatosis and slightly lobulated liver contour is seen. Gallbladder: No radiopaque gallstones or wall thickening. Biliary ducts: No biliary dilation. Pancreas: No ductal dilation. Spleen: Size is within normal limits. Adrenal Glands: No adrenal nodules. Kidneys and Ureters: There is mild left-sided hydronephrosis and hydroureter extending to the level of left UVJ . Mild bilateral perinephric fat stranding is seen. No right-sided renal stones or hydronephrosis. Stomach and Bowel: There is no bowel obstruction. No gastric or small bowel wall thickening. Appendix is not definitively seen. No focal inflammatory changes are seen in right lower quadrant abdomen. Extensive descending colon and sigmoid colon diverticulosis is seen without focal colonic wall thickening or pericolonic fat stranding. Peritoneum: No abnormal intraperitoneal fluid. No free air. Ventral Wall: No significant ventral hernia. Abdominal Nodes: No retroperitoneal or mesenteric adenopathy by size criteria. Vessels: Aorta and inferior vena cava are normal in size. PELVIS: Pelvic Organs: Enlarged prostate gland with mass effect on floor of urinary bladder is seen. Bladder: No bladder wall thickening, accounting for underdistention. Faint 1-2 mm hyperdensity in dependent portion of urinary bladder just distal to left UVJ is noted series 2, image 122. Pelvic Nodes: No enlarged lymph nodes. Miscellaneous: No inguinal hernias are seen. Bones: No aggressive osseous abnormality. IMPRESSION: 1. Finding may indicate a passed tiny 1-2 mm left-sided renal stone with mild residual left-sided hydronephrosis and hydroureter. Nonspecific mild bilateral perinephric fat stranding. No right-sided hydronephrosis or hydroureter. 2. Normal appearing urinary bladder. Enlarged prostate gland with mass effect on floor of urinary bladder. 3. Extensive colonic diverticulosis without CT evidence of acute diverticulitis. No free fluid or free air. Dictated by: Juan Manuel Brown M.D. on 04/10/2024 at 23:19 Approved by: Juan Manuel Brown M.D. on 04/10/2024 at 23:28
[2024-04-10] MEDS: KETOROLAC 30 MG/ML VIAL 15 MG IV (23:12)
[2024-04-10] MEDS: ONDANSETRON 4 MG/2 ML INJ IV (23:12)
[2024-04-11] VITALS: PULSE 95; O2SAT 94
[2024-04-11 00:10] VITALS: BP 138/76
== END 2024-04-11 00:12 | disposition home or self-care (01) ==
PROVIDERS: Emergency Provider Emergency Medicine; Family Provider Physician Assistant; PCP Physician Assistant
DX: R10.9 Unspecified abdominal pain (principal); R25.3 Fasciculation; I10 Essential (primary) hypertension; Z87.891 Personal history of nicotine dependence
CPT/HCPCS: 36415; 74177; 80053; 81003; 83690; 85025; 93005; 96374; 96375; 99284; J1885; J2405; Q9967

== ENCOUNTER → 2024-04-27 19:12 | Outpatient (CLI) | payer OTHER, SELFPAY ==
--- NOTE | 2024-04-27 | DI.MRI.S_ITS ---
PROCEDURE: MR CERVICAL SPINE WO CON INDICATIONS: clone TECHNIQUE: Noncontrast sagittal T1 spin echo and T2 fast spin echo, sagittal STIR, foraminal oblique sagittal T2 fast spin echo, and axial gradient echo or T2 fast spin echo through the cervical spine. COMPARISON: [facility], CT, CT ABDOMEN PELVIS W CON, 04/10/2024, 22:55. FINDINGS: Image quality: Excellent Extensive marrow replacing lesion in the cervical spine, involving the entirety of C5, C6 vertebral body, extending into the posterior element, and T2 and T3 vertebral body, extending into the posterior element, partially visualized, highly concerning for osseous metastasis. Mild anterolisthesis of C4 on C5, C7 on T1, T1 on T2, and T2 on T3. Vertebral body height of the cervical spine are well maintained. Multilevel disc desiccation and disc bulge. Cord signal: Increased cord signal at the left aspect of the cervical cord at the level of C3-4, concerning for myelomalacia. In addition, there is expansile appearance of the thoracic cord at the level of T1-2 with subjacent large soft tissue density at the right aspect of the central canal, measuring 3.4 cm, incompletely evaluated. Axial images: C2-3: Mild bilateral facet arthropathy. No central canal stenosis. Mild right neural foraminal stenosis. No left neural foraminal stenosis. C3-4: Severe right, mild left facet arthropathy. Posterior disc osteophyte complex. Severe central canal stenosis. Severe right, mild left neural foraminal stenosis. C4-5: Moderate right, severe left facet arthropathy. Posterior disc osteophyte complex. Mild central canal stenosis. Severe bilateral neural foraminal stenosis. L5-S1: Left uncovertebral arthropathy. Mild bilateral facet arthropathy. Moderate left neural foraminal stenosis. No right neural foraminal or central canal stenosis. C6-7: Mild bilateral uncovertebral arthropathy. Mild right, moderate left neural foraminal stenosis. No central canal stenosis. C7-T1: Mild right, severe left facet arthropathy. Mild right, severe left neural foraminal stenosis. No central canal stenosis. Other soft tissue findings: Large bilateral mastoid effusion. IMPRESSION: 1. 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 Recommend further evaluation with thoracic and lumbar spine MRI with intravenous contrast. 2. Expansile appearance of the thoracic cord with subjacent soft tissue at the level of T2, highly concerning for metastasis, incompletely evaluated. 3. Multilevel degenerative changes of the cervical spine, most pronounced at C3-4, where there is severe central canal stenosis with associated myelomalacia. Dictated by: Wilda Garza M.D. on 04/28/2024 at 11:33 Approved by: Wilda Garza M.D. on 04/28/2024 at 11:51
--- NOTE | 2024-04-27 | DI.MRI.S_ITS ---
PROCEDURE: MR SHOULDER RT WO CON INDICATIONS: clone TECHNIQUE: Noncontrast oblique coronal T2 fast spin echo with fat saturation, oblique sagittal T1 spin echo and T2 fast spin echo with fat saturation, axial T1 spin echo and T2 fast spin echo with fat saturation through the shoulder. COMPARISON: [facility], CT, CT ABDOMEN PELVIS W CON, 04/10/2024, 22:55. FINDINGS: Image quality: Excellent. Rotator cuff: 1.2 cm calcification at the footprint of the junction supraspinatus and infraspinatus, representing hydroxyapatite deposition disease. There is high-grade, articular sided tear at the mid footprint of the supraspinatus, extending to the posterior footprint. There is articular sided, high-grade tear at the critical zone of the junction supraspinatus and infraspinatus, extending into the footprint (08:11). No tear of the infraspinatus. The teres minor is intact. The subscapularis is unremarkable. No muscle edema or fatty atrophy. Bones and bursae: No significant degenerative changes acromioclavicular joint. Type 2 acromion. No os acromiale. Mild subacromial/subdeltoid bursitis. Mild subchondral cystic changes at the greater tuberosity, reactive. There is extensive marrow replacing lesion in the distal clavicle, the near entirety of the scapula, partially visualized, with associated surrounding soft tissue edema, highly concerning for osseous metastasis. No acute fracture. Capsule and soft tissues: Tear of the superior labrum, extending anteriorly to the anterior labrum. The extra-articular biceps tendon is unremarkable. The intra-articular biceps tendon is not well visualized. No significant glenohumeral effusion. No intra-articular body. Marked thickening of the inferior glenohumeral ligament, raising concern for adhesive capsulitis. IMPRESSION: 1. 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 2. 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 3. High-grade, full width tear of the supraspinatus. 4. Adhesive capsulitis. Dictated by: Wilda Garza M.D. on 04/28/2024 at 11:51 Approved by: Wilda Garza M.D. on 04/28/2024 at 12:03
== END ==
PROVIDERS: Family Provider Physician Assistant; PCP Physician Assistant; Referring Provider Physician Assistant; Visit Provider Physician Assistant
DX: M47.22 Other spondylosis with radiculopathy, cervical region (principal); M89.9 Disorder of bone, unspecified; M75.121 Complete rotator cuff tear or rupture of right shoulder, not specified as traumatic; M75.01 Adhesive capsulitis of right shoulder; M11.011 Hydroxyapatite deposition disease, right shoulder; M25.511 Pain in right shoulder; M43.12 Spondylolisthesis, cervical region; M48.02 Spinal stenosis, cervical region; G95.89 Other specified diseases of spinal cord
CPT/HCPCS: 72141; 73221

== ENCOUNTER 2024-06-12 00:01 | Emergency (ER) | payer OTHER, SELFPAY ==
[2024-06-12] VITALS (9 sets, daily range): BP systolic 99–138; BP diastolic 65–76; PULSE 83–98; RESP 14–29; O2SAT 92–96; BMI 28.6
--- NOTE | 2024-06-12 00:06 | DI.RAD.S_ITS ---
PROCEDURE: XR CHEST 1V INDICATIONS: Shortness of breath TECHNIQUE: One view of the chest was acquired. COMPARISON: [facility], CR, XR CHEST 1V, 06/27/2022, 12:06. FINDINGS: Surgical changes and devices: Cervical spinal fusion hardware is partially imaged. Lungs and pleura: No consolidation. Horizontal linear opacity at the left lung base is likely related to atelectasis or scarring. No pleural effusions or pneumothorax. Mediastinum: Mediastinal contours appear normal. Heart size is normal. Bones and chest wall: No suspicious bony lesions. Overlying soft tissues appear unremarkable. IMPRESSION: No acute cardiopulmonary abnormality is seen. Approved by: Wojciech Bellamy M.D. on 06/12/2024 at 0:57
--- NOTE | 2024-06-12 00:11 | EKG_ITS ---
[facility] [address] [place] [address] Test Date: 2024-06-12 Pat Name: Adrian Samuels Department: [facility] Room: Gender: Male [employer] Support Services Director: : 1955 Requested By: Order Number: [id number] Reading MD: Igor Wolf MD Measurements Intervals [place] Rate: 101 P: 31 SC: 172 QRS: -29 QRSD: 72 T: 10 QT: 358 QTc: 464 Interpretive Statements Sinus tachycardia with occasional premature ventricular complexes Nonspecific ST abnormality Electronically Signed On 06-12-2024 7:35:35 PDT by Igor Wolf MD
[2024-06-12 00:25] LABS: Add Manual Diff / Slide Review NO; Basophils Absolute Auto 100 /uL (0-100); Eosinophils Absolute Auto 100 /uL (0-450); Hematocrit 37.3 % (41-53); Hemoglobin 12.7 g/dL (13.5-17.5); Lymphocytes Absolute Auto 1600 /uL (1100-4500); Lymphocytes Percent Auto 14.1 % (25-40); Mean Corpuscular HGB Conc 34.1 % (30-36); Mean Corpuscular Hemoglobin 29.3 PG (26-34); Monocytes Absolute Auto 1100 /uL (0-900); Monocytes Percent Auto 9.7 % (3-14); Neutrophils Absolute Auto 8600 /uL (1500-7000); Neutrophils Percent Auto 74.2 % (50-75); Platelet Count 262 X10^3/uL (150-400); Red Blood Cell Count 4.34 X10^6/uL (4.5-5.9); Red Cell Distribution Width 14.6 % (11.6-14.8); White Blood Cell Count 11.6 X10^3/uL (4.5-11.0)
[2024-06-12 00:26] LABS: INR 1.1 (0.9-1.3); Prothrombin Time 12.3 SECONDS (9.4-12.5)
--- NOTE | 2024-06-12 00:29 | ED.SOB ---
HPI - SOB/Dyspnea General Chief Complaint: Shortness of Breath/Dyspnea Stated Complaint: SOB Time Seen by Provider: 06/12/24 00:09 Mode of arrival: Ambulatory History of Present Illness HPI Narrative: 68-year-old male history of htn, prostate cancer stage IV with Mets on lupron therapy no chemo or radiation recently had spine surgery to remove mass from mets to the spine about a month ago presents with shortness of breath over the past few days with O2 sats in the 80s to 90s at rest and worse with activity. He was on hydromorphine and lyrica but it was causing constipation and having breakthrough pain so the oncologist placed on buprenorphine patch starting on Wednesday 20mg and he started to notice difficulty breathing so his put the 7.5mcg patch on today to see if it would help. He is still symptomatic with SOB. Patient also he has a dry intermittent cough at times but denies active chest pain, leg pain or swelling, fever, chills, body aches, nausea, vomiting, and diarrhea. Other than what is stated 14 point review of system is negative. Related Data Home Medications Medication Instructions Recorded Confirmed lisinopril 10 mg tablet 10 mg PO DAILY 06/27/22 06/27/22 Previous Rx's Medication Instructions Recorded albuterol sulfate 90 mcg/actuation 1 puff inhalation QID PRN 06/27/22 aerosol inhaler shortness of breath or wheezing #8.5 grams benzonatate 200 mg capsule 200 mg PO BID PRN cough #20 caps 06/27/22 cetirizine 10 mg tablet 10 mg PO BEDTIME PRN congestion 06/27/22 #20 tabs guaifenesin 600 mg tablet, 600 mg PO BID #20 tabs 06/27/22 extended release 12 hr (Mucinex) inhalational spacing device #1 ea 06/27/22 (Aerochamber MV spacer) potassium chloride 20 mEq 20 meq PO BID #6 tabs 06/12/24 tablet,extended release Allergies Allergy/AdvReac Type Severity Reaction Status Date / Time No Known Drug Allergies Allergy Verified 06/27/22 12:14 Review of Systems Review of Systems ROS Unobtainable: All systems reviewed & are unremarkable except as noted in HPI and below Patient History Medical History (Updated 06/12/24 @ 03:17 by Igor Cole, ) Hypertension alcohol intake frequency: 0-2 drinks per day Exam Narrative Exam Narrative: GENERAL: [68] year old patient appears stated age. Well-developed patient, in mild distress. HEAD: Atraumatic. Normocephalic. EYES: Pupils equal round and reactive. Extraocular motions intact. No scleral icterus. No injection or drainage. ENT: Nose without bleeding, purulent drainage. Throat without erythema, tonsillar hypertrophy or exudate. Airway patent. NECK: Trachea midline. Non tender CARDIOVASCULAR: Regular rate and rhythm without murmurs, gallops, or rubs. RESPIRATORY: Clear to auscultation. Breath sounds equal bilaterally. No wheezes, rales, or rhonchi. GASTROINTESTINAL: Abdomen soft, non-tender, nondistended. EXTREMITIES: No edema or joint tenderness. BACK: Nontender without deformity or crepitance. No flank tenderness. NEURO: AOx3. SKIN: No rash or erythema of visible areas Initial Vital Signs Initial Vital Signs: Vital Signs Pulse Rate 98 H 06/12/24 00:08 Respiratory Rate 18 06/12/24 00:08 Blood Pressure 138/76 06/12/24 00:08 Pulse Oximetry 96 06/12/24 00:08 Oxygen Delivery Method Room Air 06/12/24 00:08 Course Orders Ordered: ED Orders 06/12/24 00:06 XR chest 1V Stat EKG-12 Lead Stat Measure peak expiratory flow STAT RT Consult Eval and Treat STAT 06/12/24 00:10 Complete Blood Count AUTO DIFF Stat Comprehensive Metabolic Panel Stat Lactate (Lactic Acid) Stat NT-proBNP (BNP-Adult 18+) Stat Prothrombin Time INR Stat Troponin I Stat Vital Signs Vital signs: Vital Signs - 8 hr 06/12/24 00:08 Pulse Rate 98 H Respiratory Rate 18 Blood Pressure 138/76 Pulse Oximetry 96 Oxygen Delivery Method Room Air MDM - SOB/Dyspnea Lab Data 06/12/24 00:10 06/12/24 00:10 Labs: Lab Results 06/12/24 Range/Units 00:10 WBC 11.6 H (4.5-11.0) X10^3/uL RBC 4.34 L (4.5-5.9) X10^6/uL Hgb 12.7 L (13.5-17.5) g/dL Hct 37.3 L (41-53) % MCV 86.0 (80-100) fL MCH 29.3 (26-34) PG MCHC 34.1 (30-36) % RDW 14.6 (11.6-14.8) % Plt Count 262 (150-400) X10^3/uL Neut % (Auto) 74.2 (50-75) % Lymph % (Auto) 14.1 L (25-40) % [place] % (Auto) 9.7 (3-14) % Eos % (Auto) 1.0 L (2-4) % Baso % (Auto) 1.0 (0-2) % Neut # (Auto) 8600 H (1568-6156) /uL Lymph # (Auto) 1600 (2299-6375) /uL [place] # (Auto) 1100 H (0-900) /uL Eos # (Auto) 100 (0-450) /uL Baso # (Auto) 100 (0-100) /uL PT 12.3 (9.4-12.5) SECONDS INR 1.1 (0.9-1.3) Imaging Data cta pe: Radiologist's Impression: [place] [address] CT Scan Report Signed Patient: Adrian Samuels MR#: [id number] : 1955 Acct:[id number] Age/Sex: 68 / M Date of Service: 06/12/24 Loc: ED Accession Number: [id number] Procedure: CT angio chest PE protocol Ordering Provider: Igor Cole D.O. PROCEDURE: CT ANGIO CHEST PE PROTOCOL INDICATIONS: sob 02 80-90s TECHNIQUE: After the administration of intravenous contrast, 2 mm thick sections acquired from the pulmonary apices to the posterior costophrenic angles. 3-dimensional maximum intensity projection (MIP) coronal and sagittal reformats were then acquired through the thorax. For radiation dose reduction, the following was used: automated exposure control, adjustment of mA and/or kV according to patient size. COMPARISON: [facility], [place], XR CHEST 1V, 06/12/2024, 0:12. FINDINGS: Image quality: Diagnostic. Pulmonary arteries: Pulmonary arteries are normal in size, and demonstrate no intraluminal filling defects to suggest central pulmonary embolism. Lower Neck: No enlarged lymph nodes. Thyroid: No thyroid nodules which require sonographic follow up, per consensus guidelines. Axillae: No enlarged lymph nodes. Chest Wall: Unremarkable. Bones: Numerous sclerotic osseous lesions involving the cervical and thoracic spine as well as multiple ribs, the left clavicle, and the right scapula. Postsurgical changes are seen in the cervical spine. No definite acute pathologic fracture identified. Lungs and Pleura: No pneumothorax or pleural effusions. No consolidation or suspicious nodules. Heart: Heart size is normal. No pericardial effusion. Moderate to severe coronary artery calcifications. Aortic valve calcifications. Thoracic Vessels: No aortic aneurysm. Mediastinum and [place]: Left anterior hilar lymph node measures 2 cm in short axis diameter (4/70). Esophagus: No wall thickening. No hiatal hernia. Upper Abdomen: Visualized upper abdomen solid organs and bowel loops appear normal. IMPRESSION: 1. No acute pulmonary embolus. No acute abnormality identified in the chest. 2. Numerous sclerotic osseous lesions are highly suspicious for osseous metastatic disease. Recommend correlation for any known malignancy and possible PSA level in a male patient of this age. 3. Enlarged left anterior hilar/mediastinal lymph node measures up to 2 cm in short axis diameter. 4. Moderate to severe coronary artery calcifications. ECG Data Interpretation: ST with occ PVC HR 101 MA 172 QRS [address]-t wave change Unchanged from 04/10/24 MDM Narrative Medical decision making narrative: All lab work vital signs nurse triage note medication list previous ER visits and all imaging modalities reviewed. Patient is sitting upright O2 sats of 94-96% throughout his ER stay in no respiratory distress. Differential diagnosis includes PE, pneumothorax, pneumonia, NSTEMI, STEMI, prostate cancer with Mets, medication side effect with buprenorphine transdermal patch. D/c home potassium choride rx and [facility]. Discharge Plan Departure Patient Disposition: Home Clinical Impression: Shortness of Breath, Hypokalemia Instructions: DI for Hypokalemia Activity Restrictions/Additional Instructions: Return with new or worsening symptoms. Take your medicines as directed. Follow up [facility] this [facility] for recheck of potassium level and Oncologist MD at your next scheduled appointment. Prescriptions: New potassium chloride 20 mEq tablet extended release 20 meq PO BID Qty: 6 0RF No Action lisinopril 10 mg tablet 10 mg PO DAILY Patient Comments: TAKE 1 TABLET BY MOUTH EVERY DAY cetirizine 10 mg tablet 10 mg PO BEDTIME PRN (Reason: congestion) Qty: 20 0RF guaifenesin [Mucinex] 600 mg tablet extended release 12hr 600 mg PO BID Qty: 20 0RF benzonatate 200 mg capsule 200 mg PO BID PRN (Reason: cough) Qty: 20 0RF albuterol sulfate 90 mcg/actuation HFA aerosol inhaler 1 puff inhalation QID PRN (Reason: shortness of breath or wheezing) Qty: 8.5 1RF (DME) Aerochamber MV Spacer See Rx Instructions .Route Qty: 1 0RF Rx Instructions: As directed Stand Alone Forms: Patient Portal/API/Survey
[2024-06-12 00:31] LABS: Alanine Aminotransferase 33 IU/L (<50); Albumin 4.2 g/dL (3.5-5.0); Alkaline Phosphatase 210 U/L (38-126); Aspartate Aminotransferase 29 IU/L (17-59); Bilirubin Total 0.8 mg/dL (0.2-1.3); Calcium 9.2 mg/dL (8.4-10.2); Carbon Dioxide 36 mmol/L (22-32); Chloride 92 mmol/L (98-107); Glucose 139 mg/dL (70-99); HEMOLYSIS < 15 (0-50); Potassium 2.9 mmol/L (3.4-5.1); Sodium 136 mmol/L (137-145)
[2024-06-12 00:32] LABS: Albumin Globulin Ratio 1.3 (1.0-2.8); BUN Creatinine Ratio 20.3 (6-22); Blood Urea Nitrogen 27 mg/dL (9-20); Estimated Glomerular Filt Rate 58 mL/min (>60); Globulin 3.3 g/dL (1.7-4.1); Total Protein 7.5 g/dL (6.3-8.2)
--- NOTE | 2024-06-12 00:41 | DI.CT.S_ITS ---
PROCEDURE: CT ANGIO CHEST PE PROTOCOL INDICATIONS: sob 02 80-90s TECHNIQUE: After the administration of intravenous contrast, 2 mm thick sections acquired from the pulmonary apices to the posterior costophrenic angles. 3-dimensional maximum intensity projection (MIP) coronal and sagittal reformats were then acquired through the thorax. For radiation dose reduction, the following was used: automated exposure control, adjustment of mA and/or kV according to patient size. COMPARISON: [facility], CR, XR CHEST 1V, 06/12/2024, 0:12. FINDINGS: Image quality: Diagnostic. Pulmonary arteries: Pulmonary arteries are normal in size, and demonstrate no intraluminal filling defects to suggest central pulmonary embolism. Lower Neck: No enlarged lymph nodes. Thyroid: No thyroid nodules which require sonographic follow up, per consensus guidelines. Axillae: No enlarged lymph nodes. Chest Wall: Unremarkable. Bones: Numerous sclerotic osseous lesions involving the cervical and thoracic spine as well as multiple ribs, the left clavicle, and the right scapula. Postsurgical changes are seen in the cervical spine. No definite acute pathologic fracture identified. Lungs and Pleura: No pneumothorax or pleural effusions. No consolidation or suspicious nodules. Heart: Heart size is normal. No pericardial effusion. Moderate to severe coronary artery calcifications. Aortic valve calcifications. Thoracic Vessels: No aortic aneurysm. Mediastinum and [place]: Left anterior hilar lymph node measures 2 cm in short axis diameter (4/70). Esophagus: No wall thickening. No hiatal hernia. Upper Abdomen: Visualized upper abdomen solid organs and bowel loops appear normal. IMPRESSION: 1. No acute pulmonary embolus. No acute abnormality identified in the chest. 2. Numerous sclerotic osseous lesions are highly suspicious for osseous metastatic disease. Recommend correlation for any known malignancy and possible PSA level in a male patient of this age. 3. Enlarged left anterior hilar/mediastinal lymph node measures up to 2 cm in short axis diameter. 4. Moderate to severe coronary artery calcifications. Approved by: Wojciech Bellamy M.D. on 06/12/2024 at 2:02
[2024-06-12 00:43] LABS: NT-proBNP (BNP-Adult 18+) 350 pg/mL (<125); Troponin I < 0.012 ng/mL (0.01-0.034)
[2024-06-12 01:29] LABS: Influenza A - CEPHEID Flu A NEGATIVE (NEGATIVE); Influenza B - CEPHEID Flu B NEGATIVE (NEGATIVE); Respiratory Syncytial Virus Negative (Negative)
[2024-06-12 01:38] LABS: COVID-19 CEPHEID 4-PLEX PCR Negative (Negative)
[2024-06-12] MEDS: POTASSIUM CHLORIDE 20 MEQ TAB 40 MEQ PO (02:08)
[2024-06-12] MEDS: POTASSIUM CHLORIDE IN WATER 10 MEQ/100 ML PIGGYBACK 100 MEQ IV (02:09)
[2024-06-12 02:11] LABS: Magnesium 2.4 mg/dL (1.6-2.3)
[2024-06-12 03:07] LABS: Troponin I < 0.012 ng/mL (0.01-0.034)
== END 2024-06-12 03:30 | disposition home or self-care (01) ==
PROVIDERS: Emergency Provider Family Medicine
DX: R06.02 Shortness of breath (principal); E87.6 Hypokalemia; C61 Malignant neoplasm of prostate
CPT/HCPCS: 0241U; 36415; 71045; 71275; 80053; 83605; 83735; 83880; 84484; 85025; 85610; 93005; 93010; 99284; Q9967

== ENCOUNTER → 2024-08-16 13:57 | Outpatient (CLI) | payer OTHER, SELFPAY ==
[2024-08-16 14:49] LABS: Appearance Urine UA CLOUDY; Bilirubin Urine UA NEGATIVE (NEGATIVE); Color Urine UA YELLOW; Glucose Urine UA NEGATIVE (Negative); Ketones Urine UA NEGATIVE (NEGATIVE); Leukocyte Esterase Urine UA 3+ (NEGATIVE); Nitrite Urine UA POSITIVE (Negative); Occult Blood Urine UA 1+ (Negative); Protein Urine UA 1+ (Negative); Specific Gravity Urine UA <=1.005 (1.000-1.035); Urobilinogen Urine UA 1.0 E.U./dL (0.2); pH Urine UA 6.5 (4.5-8.0)
[2024-08-16 15:16] LABS: Culture Indicated Urine Specimen Cultured
== END ==
PROVIDERS: PCP Urology; Referring Provider Urology; Visit Provider Urology
DX: R39.9 Unspecified symptoms and signs involving the genitourinary system (principal)
CPT/HCPCS: 81001; 87077; 87086; 87186

== ENCOUNTER 2024-09-04 01:23 | Emergency (ER) | payer OTHER, SELFPAY ==
[2024-09-04] VITALS (9 sets, daily range): BP systolic 127–150; BP diastolic 73–100; PULSE 85–107; RESP 18–40; TEMP 36.6; O2SAT 94–97; BMI 29.0
--- NOTE | 2024-09-04 01:39 | DI.RAD.S_ITS ---
PROCEDURE: XR CHEST 1V INDICATIONS: chest pain TECHNIQUE: One view of the chest was acquired. COMPARISON: [facility], CR, XR CHEST 1V, 06/12/2024, 0:12. FINDINGS: Surgical changes and devices: Cervical thoracic fixation rods. Lungs and pleura: Lungs are clear. No pleural effusions or pneumothorax. Mediastinum: Mediastinal contours appear normal. Heart size is prominent. Bones and chest wall: No suspicious bony lesions. Overlying soft tissues appear unremarkable. IMPRESSION: No acute pulmonary process. Dictated by: Susan Pelayo M.D. on 09/04/2024 at 1:53 Approved by: Susan Pelayo M.D. on 09/04/2024 at 1:54
--- NOTE | 2024-09-04 01:53 | PC.NURSE ---
Pt has been treated for UTI, but had a few days without symptoms. Noted return of symptoms on Wednesday09/01/24.
--- NOTE | 2024-09-04 01:55 | PC.NURSE ---
During intake assessment (triage/primary assessment) pt declines full cardiac work up. Provider notified at this time.
--- NOTE | 2024-09-04 02:02 | ED.GENADULT ---
HPI - General Adult General Chief complaint: Urogenital-Male Stated complaint: SOB, Swollen Ankles, Urinary Symptoms Time Seen by Provider: 09/04/24 01:39 Source: patient Mode of arrival: Ambulatory History of Present Illness HPI narrative: 68-year-old male with history hypertension, stage IV prostate cancer with metastases on Lupron therapy but no chemotherapy or recent radiation, spine surgery to remove mass from metastases to the spine at [facility] in [place], had MRI of the spine yesterday in [place] and does not know the results. Also history of urinary tract infection, self catheterizes, recently started on antibiotic for possible urine infection, change to cefdinir antibiotic 7 day course which was completed 7 days ago. Now having dysuria and frequency of urination. Also complains of swelling to both legs. And some shortness of breath yesterday. Denies chest pain. Denies fevers or chills. Related Data Home Medications ?Medication ?Instructions ?Recorded ?Confirmed lisinopril 10 mg tablet 10 mg PO DAILY 06/27/22 09/04/24 abiraterone 250 mg tablet 1,000 mg PO DAILY 09/04/24 09/04/24 alpha lipoic acid 150 mg capsule 450 mg PO DAILY 09/04/24 09/04/24 losartan 25 mg tablet 12.5 mg PO DAILY 09/04/24 09/04/24 polyethylene glycol 3350 17 gram 8 g PO DAILY 09/04/24 09/04/24 oral powder packet (Gavilax) prednisone 5 mg tablet 5 mg PO DAILY 09/04/24 09/04/24 Previous Rx's ?Medication ?Instructions ?Recorded albuterol sulfate 90 mcg/actuation 1 puff inhalation QID PRN 06/27/22 aerosol inhaler shortness of breath or wheezing #8.5 grams cetirizine 10 mg tablet 10 mg PO BEDTIME PRN congestion 06/27/22 #20 tabs inhalational spacing device #1 ea 06/27/22 (Aerochamber MV spacer) potassium chloride 20 mEq 20 meq PO BID #6 tabs 06/12/24 tablet,extended release cefdinir 300 mg capsule 300 mg PO BID 10 days #20 caps 09/04/24 Allergies Allergy/AdvReac Type Severity Reaction Status Date / Time No Known Drug Allergies Allergy Verified 09/04/24 01:28 Patient History Medical History (Updated 09/04/24 @ 02:23 by Darren Cantu MD) Hypertension Social History Smoking Status: Former smoker Smoking Status: Former smoker tobacco type: cigarettes alcohol intake frequency: 0-2 drinks per day Exam Narrative Exam Narrative: GENERAL: Well-developed patient, in mild distress. HEAD: Atraumatic. Normocephalic. EYES: Pupils equal round and reactive. Extraocular motions intact. No scleral icterus. No injection or drainage. ENT: Nose without bleeding, purulent drainage. Airway patent. NECK: Trachea midline. Non tender. Well-healed upper back lower cervical midline scar. CARDIOVASCULAR: Regular rate and rhythm without murmurs, gallops, or rubs. RESPIRATORY: Clear to auscultation. Breath sounds equal bilaterally. No wheezes, rales, or rhonchi. GASTROINTESTINAL: Abdomen soft, non-tender, nondistended. EXTREMITIES: No edema or joint tenderness. BACK: Nontender without deformity or crepitance. No flank tenderness. NEURO: AOx3. Motor functions grossly nonfocal. SKIN: No rash or erythema of visible areas Initial Vital Signs Initial Vital Signs: Vital Signs Temperature 98 F 09/04/24 01:33 Pulse Rate 103 H 09/04/24 01:33 Respiratory Rate 20 09/04/24 01:33 Blood Pressure 127/74 09/04/24 01:33 Pulse Oximetry 96 09/04/24 01:33 Oxygen Delivery Method Room Air 09/04/24 01:33 Course Orders Ordered: Discontinued Medications Aspirin (Aspirin 81 Mg Chew Tab) 324 mg PO NOW ONE Stop: 09/04/24 01:40 Last Admin: 09/04/24 03:14 Dose: 324 mg Documented By: Ceftriaxone Sodium 1,000 mg/ (Sodium Chloride) 100 mls @ 200 mls/hr IV NOW ONE Stop: 09/04/24 02:23 Last Infusion: 09/04/24 04:09 Dose: Infused Documented By: Admin: 09/04/24 03:14 Dose: 200 mls/hr Documented By: Vital Signs Vital signs: Vital Signs - 8 hr 09/04/24 01:33 09/04/24 02:32 09/04/24 02:36 Temperature 98 F Pulse Rate 103 H 91 H 90 Respiratory Rate 20 24 Blood Pressure 127/74 Pulse Oximetry 96 95 96 Oxygen Delivery Method Room Air Room Air 09/04/24 02:36 09/04/24 03:00 09/04/24 03:00 Temperature Pulse Rate 85 Respiratory Rate 22 Blood Pressure 134/84 140/84 Pulse Oximetry 96 Oxygen Delivery Method 09/04/24 03:30 09/04/24 03:30 09/04/24 04:00 Temperature Pulse Rate 107 H 99 H Respiratory Rate 40 H 35 H Blood Pressure 140/100 H Pulse Oximetry 97 97 Oxygen Delivery Method Room Air 09/04/24 04:00 09/04/24 04:30 09/04/24 04:30 Temperature Pulse Rate 87 Respiratory Rate 18 Blood Pressure 150/84 H 132/84 Pulse Oximetry 94 Oxygen Delivery Method 09/04/24 05:00 09/04/24 05:01 09/04/24 05:01 Temperature Pulse Rate 89 90 Respiratory Rate 22 Blood Pressure 127/73 Pulse Oximetry 95 96 Oxygen Delivery Method Room Air Medical Decision Making Lab Data Lab results reviewed: Yes I reviewed the patient's lab results. Lab results narrative: White blood cell count 8800, hemoglobin 13.2, platelets adequate. Glucose 114. BUN 30 with creatinine 1.24, serum CO2 26 normal. Electrolytes unremarkable. BNP 629 mild elevation. Troponin negative/unmeasurable. 09/04/24 02:30 09/04/24 02:30 Labs: Lab Results 09/04/24 09/04/24 09/04/24 Range/Units 01:45 02:30 04:30 WBC 8.8 (4.5-11.0) X10^3/uL RBC 4.32 L (4.5-5.9) X10^6/uL Hgb 13.2 L (13.5-17.5) g/dL Hct 37.2 L (41-53) % MCV 86.1 (80-100) fL MCH 30.5 (26-34) PG MCHC 35.5 (30-36) % RDW 13.7 (11.6-14.8) % Plt Count 228 (150-400) X10^3/uL Neut % (Auto) 69.0 (50-75) % Lymph % (Auto) 20.2 L (25-40) % [place] % (Auto) 7.7 (3-14) % Eos % (Auto) 1.9 L (2-4) % Baso % (Auto) 1.2 (0-2) % Neut # (Auto) 6100 (9397-2860) /uL Lymph # (Auto) 1800 (8655-4645) /uL [place] # (Auto) 700 (0-900) /uL Eos # (Auto) 200 (0-450) /uL Baso # (Auto) 100 (0-100) /uL Sodium 138 (137-145) mmol/L Potassium 3.9 (3.4-5.1) mmol/L Chloride 105 (98-107) mmol/L Carbon Dioxide 26 (22-32) mmol/L BUN 30 H (9-20) mg/dL Creatinine 1.24 (0.66-1.25) mg/dL Estimated GFR > 60 (>60) mL/min BUN/Creatinine Ratio 24.2 H (6-22) Glucose 114 H (70-99) mg/dL Calcium 9.3 (8.4-10.2) mg/dL Total Bilirubin 0.5 (0.2-1.3) mg/dL AST 26 (17-59) IU/L ALT 20 (<50) IU/L Alkaline Phosphatase 186 H (38-126) U/L Total Creatine Kinase 134 (55-170) U/L Troponin I < 0.012 < 0.012 (0.01-0.034) ng/mL NT-Pro-B Natriuret Pep 629 H (<125) pg/mL Total Protein 7.1 (6.3-8.2) g/dL Albumin 4.2 (3.5-5.0) g/dL Globulin 2.9 (1.7-4.1) g/dL Albumin/Globulin Ratio 1.4 (1.0-2.8) Lipase 91 (23-300) U/L Urine RBC 1-5/hpf (0-5/HPF) Urine WBC 30-100/hpf H (0-5/HPF) Ur Squamous Epith Cells 0-1 /hpf (0-5/HPF) Urine Bacteria Many (>30) H (None) Ur Culture Indicated? Cult not indicated Vol Urine Centrifuged 10ml (spun) Urine Dip Bedside Urine Glucose Negative Bedside Urine Bilirubin - Negative Bedside Urine Ketone - Negative Urine Specific [place] 1.010 Bedside Urine Occult Blood + Bedside Urine pH 6.0 Bedside Urine Protein +/- 15 Bedside Urine Urobilinogen - Negative Bedside Urine Nitrite + Positive Bedside Urine Leukocytes +++ 500 Esterase Point of care testing: Urine Dip Bedside Urine Glucose Negative Bedside Urine Bilirubin - Negative Bedside Urine Ketone - Negative Urine Specific [place] 1.010 Bedside Urine Occult Blood + Bedside Urine pH 6.0 Bedside Urine Protein +/- 15 Bedside Urine Urobilinogen - Negative Bedside Urine Nitrite + Positive Bedside Urine Leukocytes +++ 500 Esterase Imaging Data Chest x-ray: Radiologist's Impression: [address] [address] XRay Report Signed Patient: Adrian Samuels MR#: [id number] : 1955 Acct:[id number] Age/Sex: 68 / M Date of Service: 09/04/24 Loc: ED Accession Number: [id number] Procedure: XR chest 1V Ordering Provider: Darren Cantu MD PROCEDURE: XR CHEST 1V INDICATIONS: chest pain TECHNIQUE: One view of the chest was acquired. COMPARISON: [facility], CR, XR CHEST 1V, 06/12/2024, 0:12. FINDINGS: Surgical changes and devices: Cervical thoracic fixation rods. Lungs and pleura: Lungs are clear. No pleural effusions or pneumothorax. Mediastinum: Mediastinal contours appear normal. Heart size is prominent. Bones and chest wall: No suspicious bony lesions. Overlying soft tissues appear unremarkable. IMPRESSION: No acute pulmonary process. Dictated by: Susan Pelayo M.D. on 09/04/2024 at 1:53 Approved by: Susan Pelayo M.D. on 09/04/2024 at 1:54 ECG Data Attestation: I personally reviewed and interpreted this ECG as follows: Interpretation: 0300, normal sinus rhythm with rate of 85, no obvious ST segment elevation or depression changes. DE 154, QRS 82, QTC 454. MDM Narrative Medical decision making narrative: 68-year-old male with history of metastatic prostate cancer, previous spinal lesion status post surgical removal [facility], had outpatient spinal MRI [facility] [place] yesterday, results unknown to the patient at this time. Recent completion of cefdinir antibiotic for urinary tract infection, last dose 6 days ago, self catheterizes. Feels like he has a urine infection again, with urinary frequency and painful urination. No fevers or chills. Afebrile on triage, sirs screen negative. Some dyspnea also recently noted, denies cough, admits to some swelling in the ankles. No leg pain. EKG without obvious ischemic changes. Chest x-ray no acute changes, see radiology report. Urinalysis suspicious for infection, urine culture requested. IV ceftriaxone. Lab data: Prescription sent for cefdinir new course of antibiotics. Patient self catheterizes, at risk for recurrent infections. Follow up with his urologist advised. Home with . Return precautions discussed. Discharge Plan Departure Patient Disposition: Home Clinical Impression: Urinary tract infection Activity Restrictions/Additional Instructions: Recent treatment for urinary tract infection, self catheterization procedures. 08/16/2024 urine culture result was pansensitive E coli. You reported that you were change for some antibiotic to a different course of cefdinir was completed about one-week ago. Unfortunately your urinalysis suspicious for infection again today. Urine cultures requested from specimen today. IV ceftriaxone antibiotic was given. We will give new course of cefdinir antibiotic to take by mouth, prescription sent to your pharmacy. Take prescription antibiotic course as directed. Follow up with your urologist after treatment course ends to help document clearance of infection. Return earlier to this/nearest emergency department for any change worsening symptoms or any concerns prior. You also had some symptoms of shortness of breath, chest x-ray showed no obvious infections. EKG and blood testing not suggestive of heart attack at this time. Recheck symptoms with your regular provider. Further workup as an outpatient for now. Consider using your albuterol inhaler 2 puffs 4 times daily with use of the spacer device. Recheck with your regular provider early next week. Return to this/nearest emergency department for any change worsening symptoms or any concerns prior. Prescriptions: New cefdinir 300 mg capsule 300 mg PO BID 10 Days Qty: 20 0RF No Action lisinopril 10 mg tablet 10 mg PO DAILY Patient Comments: TAKE 1 TABLET BY MOUTH EVERY DAY cetirizine 10 mg tablet 10 mg PO BEDTIME PRN (Reason: congestion) Qty: 20 0RF albuterol sulfate 90 mcg/actuation HFA aerosol inhaler 1 puff inhalation QID PRN (Reason: shortness of breath or wheezing) Qty: 8.5 1RF (DME) Aerochamber MV Spacer See Rx Instructions .Route Qty: 1 0RF Rx Instructions: As directed potassium chloride 20 mEq tablet extended release 20 meq PO BID Qty: 6 0RF losartan 25 mg tablet 12.5 mg PO DAILY prednisone 5 mg tablet 5 mg PO DAILY abiraterone 250 mg tablet 1,000 mg PO DAILY Rx Instructions: must be taken on empty stomach, at least 1 hr before or 2 hrs after a meal/food polyethylene glycol 3350 [Gavilax] 17 gram powder in packet 8 g PO DAILY alpha lipoic acid 150 mg capsule 450 mg PO DAILY Referrals: Joe Alcala MD [Primary Care Provider, Urology] Stand Alone Forms: Patient Portal/API
[2024-09-04 02:17] LABS: Culture Indicated Urine Cult Not Indicated
[2024-09-04 02:38] LABS: Add Manual Diff / Slide Review NO; Hematocrit 37.2 % (41-53); Hemoglobin 13.2 g/dL (13.5-17.5); Lymphocytes Absolute Auto 1800 /uL (1100-4500); Mean Corpuscular HGB Conc 35.5 % (30-36); Mean Corpuscular Hemoglobin 30.5 PG (26-34); Mean Corpuscular Volume 86.1 fL (80-100); Platelet Count 228 X10^3/uL (150-400)
[2024-09-04 02:49] LABS: Alanine Aminotransferase 20 IU/L (<50); Albumin 4.2 g/dL (3.5-5.0); Albumin Globulin Ratio 1.4 (1.0-2.8); Alkaline Phosphatase 186 U/L (38-126); Blood Urea Nitrogen 30 mg/dL (9-20); Calcium 9.3 mg/dL (8.4-10.2); Carbon Dioxide 26 mmol/L (22-32); Chloride 105 mmol/L (98-107); Creatine Kinase 134 U/L (55-170); Estimated Glomerular Filt Rate > 60 mL/min (>60); Globulin 2.9 g/dL (1.7-4.1); Glucose 114 mg/dL (70-99); HEMOLYSIS < 15 (0-50); Lipase 91 U/L (23-300); Potassium 3.9 mmol/L (3.4-5.1); Sodium 138 mmol/L (137-145); Total Protein 7.1 g/dL (6.3-8.2)
[2024-09-04 02:58] LABS: NT-proBNP (BNP-Adult 18+) 629 pg/mL (<125)
[2024-09-04 03:00] LABS: Troponin I < 0.012 ng/mL (0.01-0.034)
--- NOTE | 2024-09-04 03:00 | EKG_ITS ---
[address] [address] [place] [address] Test Date: 2024-09-04 Pat Name: Adrian Samuels Department: [facility] Room: Gender: Male Manager Money: KYLE : 1955 Requested By: Order Number: [id number] Reading MD: Smooth Segura Measurements Intervals [place] Rate: 85 P: 34 MO: 154 QRS: -31 QRSD: 82 T: 46 QT: 382 QTc: 454 Interpretive Statements Sinus rhythm with premature supraventricular complexes Left axis deviation Inferior infarct , age undetermined Electronically Signed On 09-15-2024 8:46:15 PDT by Smooth Segura
[2024-09-04] MEDS: ASPIRIN 81 MG CHEW TAB 324 MG PO (03:14)
[2024-09-04 05:13] LABS: Troponin I < 0.012 ng/mL (0.01-0.034)
== END 2024-09-04 05:18 | disposition home or self-care (01) ==
PROVIDERS: Emergency Provider Emergency Medicine; PCP Urology
DX: N39.0 Urinary tract infection, site not specified (principal); I10 Essential (primary) hypertension; Z85.46 Personal history of malignant neoplasm of prostate; Z87.891 Personal history of nicotine dependence
CPT/HCPCS: 36415; 71045; 80053; 81003; 81015; 82550; 83690; 83880; 84484; 85025; 87077; 87086; 87186; 93005; 96365; 99284; J0696

== ENCOUNTER → 2024-09-20 12:44 | Outpatient (CLI) | payer OTHER, SELFPAY ==
[2024-09-20 14:58] LABS: Appearance Urine UA SL CLOUDY; Bilirubin Urine UA NEGATIVE (NEGATIVE); Color Urine UA YELLOW; Glucose Urine UA NEGATIVE (Negative); Ketones Urine UA NEGATIVE (NEGATIVE); Leukocyte Esterase Urine UA 3+ (NEGATIVE); Nitrite Urine UA NEGATIVE (Negative); Occult Blood Urine UA TRACE-INTACT (Negative); Protein Urine UA NEGATIVE (Negative); Specific Gravity Urine UA <=1.005 (1.000-1.035); Urobilinogen Urine UA 0.2 E.U./dL (0.2); pH Urine UA 5.5 (4.5-8.0)
[2024-09-20 15:05] LABS: Culture Indicated Urine Specimen Cultured
== END ==
PROVIDERS: PCP Urology; Referring Provider Urology; Visit Provider Urology
DX: N39.0 Urinary tract infection, site not specified (principal); R39.9 Unspecified symptoms and signs involving the genitourinary system
CPT/HCPCS: 81001; 87077; 87086; 87186

== ENCOUNTER 2024-11-14 20:03 | Emergency (ER) | payer OTHER, SELFPAY ==
[2024-11-14 20:18] VITALS: BP 149/99; PULSE 107; RESP 16; TEMP 36.1; O2SAT 97; BMI 29.7
--- NOTE | 2024-11-14 20:21 | DI.RAD.S_ITS ---
PROCEDURE: XR SHOULDER RT MIN 2V INDICATIONS: pain, no injury TECHNIQUE: 3 views of the shoulder were acquired. COMPARISON: [facility], CT, CT ANGIO CHEST PE PROTOCOL, 06/12/2024, 1:23. FINDINGS: Bones: No fracture or dislocation. Diffuse sclerosis of the scapula involves the scapular body, clavicle, acromion process, and multiple right-sided ribs. Soft tissues: No suspicious soft tissue calcifications. Calcific tendinopathy of the superior rotator cuff. IMPRESSION: No fracture or dislocation. Innumerable sclerotic lesions, likely representing metastatic disease, favor prostate primary. This is similar to prior CT chest on 06/12/2024, correlate with any known history of malignancy. Calcific tendinopathy of the superior rotator cuff, a possible cause of shoulder pain. Dictated by: Ronny Covington M.D. on 11/14/2024 at 20:49 Approved by: Ronny Covington M.D. on 11/14/2024 at 20:52
--- NOTE | 2024-11-14 23:25 | ED.UPPEXIN ---
HPI - Extremity Injury (Upper) General Chief Complaint: Extremity Injury, Upper Stated Complaint: R arm shoulder pain, 1 week Time Seen by Provider: 11/14/24 23:24 Source: patient Mode of arrival: Ambulatory History of Present Illness HPI narrative: 69-year-old male with history of metastatic prostate cancer, had upper thoracic T1-T3 surgery related to prostatic metastases, about one-week ago was lifting himself up with his right arm, having right upper shoulder right shoulder blade area discomfort for the last 5 days, worse with movements. No anterior chest discomfort. No shortness of breath. Related Data Home Medications ?Medication ?Instructions ?Recorded ?Confirmed lisinopril 10 mg tablet 10 mg PO DAILY 06/27/22 09/04/24 abiraterone 250 mg tablet 1,000 mg PO DAILY 09/04/24 09/04/24 alpha lipoic acid 150 mg capsule 450 mg PO DAILY 09/04/24 09/04/24 losartan 25 mg tablet 12.5 mg PO DAILY 09/04/24 09/04/24 polyethylene glycol 3350 17 gram 8 g PO DAILY 09/04/24 09/04/24 oral powder packet (Gavilax) prednisone 5 mg tablet 5 mg PO DAILY 09/04/24 09/04/24 Previous Rx's ?Medication ?Instructions ?Recorded albuterol sulfate 90 mcg/actuation 1 puff inhalation QID PRN 06/27/22 aerosol inhaler shortness of breath or wheezing #8.5 grams cetirizine 10 mg tablet 10 mg PO BEDTIME PRN congestion 06/27/22 #20 tabs inhalational spacing device #1 ea 06/27/22 (Aerochamber MV spacer) potassium chloride 20 mEq 20 meq PO BID #6 tabs 06/12/24 tablet,extended release amoxicillin 875 mg-potassium 1 tab PO BID #20 tabs 10/08/24 clavulanate 125 mg tablet methocarbamol 500 mg tablet 500 mg PO TID 7 days #21 tabs 11/14/24 Allergies Allergy/AdvReac Type Severity Reaction Status Date / Time oxycodone AdvReac ITCHING Verified 11/14/24 20:18 Patient History Medical History Hypertension tobacco type: cigarettes alcohol intake frequency: 0-2 drinks per day Exam Narrative Exam Narrative: GENERAL: Well-developed patient, in mild distress. HEAD: Atraumatic. Normocephalic. EYES: Pupils equal round and reactive. Extraocular motions intact. No scleral icterus. No injection or drainage. ENT: Nose without bleeding, purulent drainage. Throat without erythema, tonsillar hypertrophy or exudate. Airway patent. NECK: Trachea midline. Non tender CARDIOVASCULAR: Regular rate and rhythm without murmurs, gallops, or rubs. RESPIRATORY: Clear to auscultation. Breath sounds equal bilaterally. No wheezes, rales, or rhonchi. GASTROINTESTINAL: Abdomen soft, non-tender, nondistended. EXTREMITIES: Tenderness to right superior trapezius and right superior rhomboid, limited range of motion due to shoulder pain. No gross deformity of the shoulder joint. No AC drop-off, no anterior fullness on palpation. BACK: Nontender without deformity or crepitance. No flank tenderness. NEURO: AOx3. Motor functions grossly nonfocal. SKIN: No rash or erythema of visible areas Initial Vital Signs Initial Vital Signs: Vital Signs Temperature 97.0 F L 11/14/24 20:18 Pulse Rate 107 H 11/14/24 20:18 Respiratory Rate 16 11/14/24 20:18 Blood Pressure 149/99 H 11/14/24 20:18 Pulse Oximetry 97 11/14/24 20:18 Oxygen Delivery Method Room Air 11/14/24 20:18 Course Orders Ordered: Discontinued Medications Methocarbamol (Methocarbamol 500 Mg Tablet) 500 mg PO NOW ONE Stop: 11/14/24 23:34 Last Admin: 11/14/24 23:46 Dose: 500 mg Documented By: CARLOS Vital Signs Vital signs: Vital Signs - 8 hr 11/14/24 23:58 Pulse Rate 94 H Respiratory Rate 17 Blood Pressure 152/88 H Pulse Oximetry 94 Oxygen Delivery Method Room Air MDM - Extremity Injury (Upper) MDM Narrative Medical decision making narrative: 69-year-old male has right shoulder pain, history of prostate cancer metastatic to the spine, upper back T1-T3 surgery April 2024, liver pulling activity one-week ago, increasing right shoulder discomfort, on exam has spasm and tenderness to the right superior trapezius musculature, and to the right superior trapezius musculature. X-ray sent from triage right shoulder, no fractures but sclerotic metastatic bony lesions noted to the adjacent rib structures and along the scapula. DDx most consistent with muscular strain by history and examination, consider also referred pain from metastatic prostate cancer with bony distant metastases. Patient was given the printed copy of the report with discussion of the metastatic findings, but no fracture. Symptomatic treatment with right shoulder sling for now. Trial of muscle relaxant, 1st dose Robaxin/methocarbamol given, prescription sent to his requested pharmacy. Discharged home with family. Follow up with PCP later this week advised. Return precautions discussed. Chronic opiate patch use also noted, prior overdose accidental, has supply of naloxone at home, asked if he would like refills, states they have supply at home, declined new refill naloxone. Placed in sling for comfort. Discharged home with family. Follow up with PCP advised next few days. Return precautions discussed. Discharge Plan Departure Patient Disposition: Home Clinical Impression: Strain of right rhomboid muscle, Strain of right trapezius muscle Activity Restrictions/Additional Instructions: History of metastatic prostate cancer, neck spinal surgery April 2024, about a week ago pull the lever, increasing right shoulder area pain in the trapezius and shoulder blade. No blunt trauma recalled. X-ray did not show any fracture changes but did show sclerotic changes to the scapula and adjacent area ribs that could be cause of discomfort as well. Muscle spasm noted on right upper superior rhomboid musculature and right upper superior trapezius musculature. Trial of muscle relaxant, 1st dose of methocarbamol/Robaxin given in the department, prescription sent to your pharmacy. Shoulder sling placed. Follow up with PCP this week advised. Return to this/nearest emergency department for any change worsening symptoms or any concerns prior. Prescriptions: New methocarbamol 500 mg tablet 500 mg PO TID 7 Days Qty: 21 0RF No Action lisinopril 10 mg tablet 10 mg PO DAILY Patient Comments: TAKE 1 TABLET BY MOUTH EVERY DAY cetirizine 10 mg tablet 10 mg PO BEDTIME PRN (Reason: congestion) Qty: 20 0RF albuterol sulfate 90 mcg/actuation HFA aerosol inhaler 1 puff inhalation QID PRN (Reason: shortness of breath or wheezing) Qty: 8.5 1RF (DME) Aerochamber MV Spacer See Rx Instructions .Route Qty: 1 0RF Rx Instructions: As directed potassium chloride 20 mEq tablet extended release 20 meq PO BID Qty: 6 0RF losartan 25 mg tablet 12.5 mg PO DAILY prednisone 5 mg tablet 5 mg PO DAILY abiraterone 250 mg tablet 1,000 mg PO DAILY Rx Instructions: must be taken on empty stomach, at least 1 hr before or 2 hrs after a meal/food polyethylene glycol 3350 [Gavilax] 17 gram powder in packet 8 g PO DAILY alpha lipoic acid 150 mg capsule 450 mg PO DAILY amoxicillin-pot clavulanate 875-125 mg tablet 1 tab PO BID Qty: 20 0RF Stand Alone Forms: Patient Portal/API
[2024-11-14 23:58] VITALS: BP 152/88; PULSE 94; RESP 17; O2SAT 94
== END 2024-11-14 23:59 | disposition home or self-care (01) ==
PROVIDERS: Emergency Provider Emergency Medicine
DX: S46.811A Strain of other muscles, fascia and tendons at shoulder and upper arm level, right arm, initial encounter (principal); S29.012A Strain of muscle and tendon of back wall of thorax, initial encounter; X58.XXXA Exposure to other specified factors, initial encounter
CPT/HCPCS: 73030; 99283

== ENCOUNTER 2024-11-21 09:49 | Emergency (ER) | payer OTHER, SELFPAY ==
[2024-11-21] VITALS (11 sets, daily range): BP systolic 120–164; BP diastolic 84–103; PULSE 86–102; RESP 15–24; TEMP 36.6; O2SAT 94–97; BMI 29.7
--- NOTE | 2024-11-21 10:00 | ED.SOB ---
HPI - SOB/Dyspnea General Chief Complaint: Shortness of Breath/Dyspnea Stated Complaint: sob, high b/p Time Seen by Provider: 11/21/24 09:53 Source: patient Mode of arrival: Ambulatory Limitations: no limitations History of Present Illness HPI Narrative: Patient 69-year-old male history of prostate cancer on immunotherapy, hypertension presenting today with increasing shortness breath. Reports that the last 2 days she has had some increasing shortness of breath with exertion. Last night he complained of orthopnea has noted some lower extremity swelling right greater than left over the last 48 hours as well. No fever no cough no chest pain. No abdominal pain. Related Data Home Medications ?Medication ?Instructions ?Recorded ?Confirmed lisinopril 10 mg tablet 10 mg PO DAILY 06/27/22 09/04/24 abiraterone 250 mg tablet 1,000 mg PO DAILY 09/04/24 09/04/24 alpha lipoic acid 150 mg capsule 450 mg PO DAILY 09/04/24 09/04/24 losartan 25 mg tablet 12.5 mg PO DAILY 09/04/24 09/04/24 polyethylene glycol 3350 17 gram 8 g PO DAILY 09/04/24 09/04/24 oral powder packet (Gavilax) prednisone 5 mg tablet 5 mg PO DAILY 09/04/24 09/04/24 Previous Rx's ?Medication ?Instructions ?Recorded albuterol sulfate 90 mcg/actuation 1 puff inhalation QID PRN 06/27/22 aerosol inhaler shortness of breath or wheezing #8.5 grams cetirizine 10 mg tablet 10 mg PO BEDTIME PRN congestion 06/27/22 #20 tabs inhalational spacing device #1 ea 06/27/22 (Aerochamber MV spacer) potassium chloride 20 mEq 20 meq PO BID #6 tabs 06/12/24 tablet,extended release amoxicillin 875 mg-potassium 1 tab PO BID #20 tabs 10/08/24 clavulanate 125 mg tablet furosemide 20 mg tablet (Lasix) 20 mg PO DAILY #3 tabs 11/21/24 Allergies Allergy/AdvReac Type Severity Reaction Status Date / Time oxycodone AdvReac ITCHING Verified 11/21/24 09:58 Patient History Medical History Hypertension Social History (Reviewed 11/21/24 @ 10:05 by GUILLERMINA Jordan Smoking Status: Unknown if ever smoked Smoking Status: Unknown if ever smoked tobacco type: cigarettes alcohol intake frequency: 0-2 drinks per day Exam Initial Vital Signs Initial Vital Signs: Vital Signs Temperature 97.9 F 11/21/24 09:50 Pulse Rate 102 H 11/21/24 09:50 Respiratory Rate 17 11/21/24 09:50 Blood Pressure 139/103 H 11/21/24 09:50 Pulse Oximetry 96 11/21/24 09:50 Oxygen Delivery Method Room Air 11/21/24 09:50 GENERAL: Alert well-appearing 69-year-old and in no acute distress. HEENT: Head atraumatic,EOMI, pupils reactive, face symmetric, moist mucous membranes CARDIOVASCULAR: Regular rate and rhythm without murmurs, rubs or gallops. RESPIRATORY: Clear breath sounds conversational dyspnea no rales wheezes or crackles ABDOMEN: Soft, nontender. Normoactive bowel sounds all 4 quadrants. No guarding or rebound. EXTREMITIES: Normal range of motion, no clubbing. +1 pitting edema Neurovascularly intact NEUROLOGICAL: Alert and oriented x4.Normal gait and speech. Cranial nerves II through XII grossly intact. [ SKIN: Warm, dry, no laceration, no petechiae, no rashes or lesions. Course Orders Ordered: ED Orders 11/21/24 09:59 XR chest 1V Stat EKG-12 Lead Stat 11/21/24 10:05 Complete Blood Count AUTO DIFF Stat Comprehensive Metabolic Panel Stat D Dimer Stat Lipase Stat Magnesium Stat NT-proBNP (BNP-Adult 18+) Stat Troponin I Stat 11/21/24 10:52 CT angio chest PE protocol Stat 11/21/24 12:40 Urine Microscopic Stat Discontinued Medications Furosemide (Furosemide 40 Mg/4 Ml Vial) 20 mg IV NOW ONE Stop: 11/21/24 12:07 Last Admin: 11/21/24 12:20 Dose: 20 mg Documented By: ES Vital Signs Vital signs: Vital Signs - 8 hr 11/21/24 09:50 11/21/24 09:55 11/21/24 09:55 Temperature 97.9 F Pulse Rate 102 H 102 H Respiratory Rate 17 Blood Pressure 139/103 H 139/103 H Pulse Oximetry 96 97 Oxygen Delivery Method Room Air 11/21/24 10:00 11/21/24 10:01 11/21/24 10:01 Temperature Pulse Rate 100 H 98 H Respiratory Rate 20 20 Blood Pressure 164/84 H Pulse Oximetry 96 96 Oxygen Delivery Method 11/21/24 10:30 11/21/24 10:30 11/21/24 11:00 Temperature Pulse Rate 89 89 Respiratory Rate 16 24 Blood Pressure 131/92 H Pulse Oximetry 96 97 Oxygen Delivery Method 11/21/24 11:30 11/21/24 12:00 11/21/24 12:30 Temperature Pulse Rate 86 92 H 93 H Respiratory Rate 15 21 24 Blood Pressure Pulse Oximetry 97 97 96 Oxygen Delivery Method 11/21/24 13:00 11/21/24 13:03 11/21/24 13:03 Temperature Pulse Rate 100 H 101 H Respiratory Rate 22 22 Blood Pressure 120/86 Pulse Oximetry 96 94 Oxygen Delivery Method MDM - SOB/Dyspnea Lab Data 11/21/24 10:05 11/21/24 10:05 Labs: Lab Results 11/21/24 11/21/24 Range/Units 10:05 12:40 WBC 6.5 (4.5-11.0) X10^3/uL RBC 4.39 L (4.5-5.9) X10^6/uL Hgb 13.4 L (13.5-17.5) g/dL Hct 39.0 L (41-53) % MCV 88.8 (80-100) fL MCH 30.4 (26-34) PG MCHC 34.3 (30-36) % RDW 12.9 (11.6-14.8) % Plt Count 236 (150-400) X10^3/uL Neut % (Auto) 63.2 (50-75) % Lymph % (Auto) 24.2 L (25-40) % [place] % (Auto) 7.8 (3-14) % Eos % (Auto) 3.6 (2-4) % Baso % (Auto) 1.2 (0-2) % Neut # (Auto) 4100 (6168-7803) /uL Lymph # (Auto) 1600 (2506-8722) /uL [place] # (Auto) 500 (0-900) /uL Eos # (Auto) 200 (0-450) /uL Baso # (Auto) 100 (0-100) /uL D-Dimer 1067 H (<500) ng/ml Sodium 137 (137-145) mmol/L Potassium 3.9 (3.4-5.1) mmol/L Chloride 106 (98-107) mmol/L Carbon Dioxide 23 (22-32) mmol/L BUN 25 H (9-20) mg/dL Creatinine 1.07 (0.66-1.25) mg/dL Estimated GFR > 60 (>60) mL/min BUN/Creatinine Ratio 23.4 H (6-22) Glucose 201 H (70-99) mg/dL Calcium 9.0 (8.4-10.2) mg/dL Magnesium 1.8 (1.6-2.3) mg/dL Total Bilirubin 0.5 (0.2-1.3) mg/dL AST 21 (17-59) IU/L ALT 21 (<50) IU/L Alkaline Phosphatase 239 H (38-126) U/L Troponin I 0.012 (0.01-0.034) ng/mL NT-Pro-B Natriuret Pep 532 H (<125) pg/mL Total Protein 7.3 (6.3-8.2) g/dL Albumin 4.2 (3.5-5.0) g/dL Globulin 3.1 (1.7-4.1) g/dL Albumin/Globulin Ratio 1.4 (1.0-2.8) Lipase 70 (23-300) U/L Urine RBC 0-1/hpf (0-5/HPF) Urine WBC 0-1/hpf (0-5/HPF) Ur Squamous Epith Cells 0-1 /hpf (0-5/HPF) Urine Bacteria Occasional (0-1) D (None) Ur Culture Indicated? Cult not indicated Vol Urine Centrifuged 10ml (spun) Urine Dip Bedside Urine Glucose Negative Bedside Urine Bilirubin - Negative Bedside Urine Ketone - Negative Urine Specific [place] 1.015 Bedside Urine Occult Blood - Negative Bedside Urine pH 5.5 Bedside Urine Protein - Negative Bedside Urine Urobilinogen - Negative Bedside Urine Nitrite - Negative Bedside Urine Leukocytes - Negative Esterase Imaging Data Chest x-ray: Radiologist's Impression: PROCEDURE: XR CHEST 1V INDICATIONS: short of breath TECHNIQUE: One view of the chest was acquired. COMPARISON: [facility], CT, CT ANGIO CHEST PE PROTOCOL, 06/12/2024, 1:23. [facility], CR, XR CHEST 1V, 09/04/2024, 1:34. FINDINGS: Surgical changes and devices: Postsurgical changes are noted in visualized lower cervical spine. Lungs and pleura: Lungs are clear. No pleural effusions or pneumothorax. Mediastinum: Mediastinal contours appear normal. Heart size is normal. Bones and chest wall: Scattered sclerotic areas throughout bony thorax also seen on previous CT study. Overlying soft tissues appear unremarkable. IMPRESSION: No acute cardiopulmonary pathology. Sclerotic lesions scattered throughout bony thorax concerning for bony metastatic disease suggest clinical correlation. Dictated by: Juan Manuel Brown M.D. on 11/21/2024 at 10:32 CT scan - chest: Radiologist's Impression: PROCEDURE: CT ANGIO CHEST PE PROTOCOL INDICATIONS: short of breath high dimer prostate cancer TECHNIQUE: After the administration of intravenous contrast, 2 mm thick sections acquired from the pulmonary apices to the posterior costophrenic angles. 3-dimensional maximum intensity projection (MIP) coronal and sagittal reformats were then acquired through the thorax. For radiation dose reduction, the following was used: automated exposure control, adjustment of mA and/or kV according to patient size. COMPARISON: [facility], CT, CT ANGIO CHEST PE PROTOCOL, 06/12/2024, 1:23. FINDINGS: Image quality: Diagnostic. Pulmonary arteries: Pulmonary arteries are normal in size, and demonstrate no intraluminal filling defects to suggest central pulmonary embolism. Lower Neck: No enlarged lymph nodes. Thyroid: No thyroid nodules which require sonographic follow up, per consensus guidelines. Axillae: No enlarged lymph nodes. Chest Wall: Unremarkable. Bones: Numerous scattered sclerotic lesions are seen throughout visualized bony pelvis particularly involving right scapular and upper thoracic vertebral bodies. Postsurgical changes are seen in lower cervical and upper thoracic spine. Additional sclerotic lesions also seen scattered in mid to lower thoracic spine vertebral bodies, a mid sternum, and bilateral ribs as well as left scapular extending to glenoid. Lungs and Pleura: No pneumothorax or pleural effusions. Scattered scarring/atelectasis in posterior and lateral periphery of bilateral mid to lower lung zone is seen. No consolidation or suspicious nodules. Heart: Heart size is mildly enlarged. No pericardial effusion. Thoracic Vessels: No aortic aneurysm. Mediastinum and [place]: No enlarged lymph nodes. Esophagus: No wall thickening. No significant hiatal hernia. Upper Abdomen: Visualized upper abdomen solid organs and bowel loops appear normal. IMPRESSION: 1. No pulmonary embolus. Ascending thoracic aorta size is in the upper limits of normal and measures 4 cm in size. No gross dissection. 2. Mild cardiomegaly, no pericardial effusion. No mediastinal or hilar lymphadenopathy. 3. Scattered scarring/atelectasis in bilateral lung [place]. No suspicious pulmonary nodule or mass is seen. No pleural effusion or pneumothorax. 4. 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 No pathologic fracture. Dictated by: Juan Manuel Brown M.D. on 11/21/2024 at 12:18 Approved by: Juan Manuel Brown M.D. on 11/21/2024 at 12:22 ECG Data Attestation: I personally reviewed and interpreted this ECG as follows: Interpretation: Normal sinus rhythm rate 101 MN interval 152 QRS [address] changes or T-wave inversions MDM Narrative Medical decision making narrative: [facility] CC: Shortness of breath Complicating co-morbidities: Metastatic prostate cancer Data collected from: Patient and Medical records reviewed: Previous ED records Differential considered: Congestive heart failure pulmonary embolism viral illness coronary artery disease Exam documented above, pertinent findings include: Alert pleasant 69-year-old male has some conversational dyspnea but clear breath sounds mild peripheral edema on lower extremity Lab Test results independently reviewed as above. Pertinent findings: CBC no anemia no leukocytosis CMP no electrolyte abnormality creatinine 1.0 glucose 201 Magnesium 1.8 Calcium 9.0 Bilirubin liver enzymes within normal limits alk-phos is noted to be elevated at 239 Troponin negative BNP 532 Independently reviewed EKG as above Sinus rhythm no ischemia Imaging studies independently reviewed: Chest x-ray no acute cardiopulmonary process CT angio no pulmonary emboli, however he does have an ascending thoracic aorta that is 4 cm in size without dissection. Cardiomegaly without effusion no mediastinal hilar lymph nodes, scattered scarring in bilateral [place] but no mass he does have extensive bony metastatic disease disease without fracture Consultations: None Treatments: Lasix Re-evaluations: [ ] Discussion: Patient is 69-year-old male presenting today with increasing shortness of breath. He does have some conversational dyspnea some evidence of fluid overload with peripheral edema on lower extremities. BNP is not significantly elevated x-ray and CT both do not show any significant pulmonary edema. He does have extensive bony Mets. At this time he can be treated as an outpatient with trial of Lasix. Patient feels comfortable with this plan all questions have been answered. He is also aware of bony metastasis, which is not new. Discharge Plan Departure Patient Disposition: Home Clinical Impression: Peripheral edema Instructions: DI for Peripheral Edema -- Bilateral Activity Restrictions/Additional Instructions: *You have been diagnosed with peripheral edema, slightly enlarged aorta 4 cm *What to do: At this time take Lasix daily for the next 3 days. You should notice improvement in your breathing. You will need to catheterize more often. I recommend taking this medication in the *Continue to take medications as directed Lasix 20 mg once a day 3 days *Follow up with your primary care provider in 2-3 days or call [phone] *Return to ER if you should have increasing chest pain shortness of breath weakness [or] any new, worsening or concerning symptoms Prescriptions: New furosemide [Lasix] 20 mg tablet 20 mg PO DAILY Qty: 3 0RF No Action lisinopril 10 mg tablet 10 mg PO DAILY Patient Comments: TAKE 1 TABLET BY MOUTH EVERY DAY cetirizine 10 mg tablet 10 mg PO BEDTIME PRN (Reason: congestion) Qty: 20 0RF albuterol sulfate 90 mcg/actuation HFA aerosol inhaler 1 puff inhalation QID PRN (Reason: shortness of breath or wheezing) Qty: 8.5 1RF (DME) Aerochamber MV Spacer See Rx Instructions .Route Qty: 1 0RF Rx Instructions: As directed potassium chloride 20 mEq tablet extended release 20 meq PO BID Qty: 6 0RF losartan 25 mg tablet 12.5 mg PO DAILY prednisone 5 mg tablet 5 mg PO DAILY abiraterone 250 mg tablet 1,000 mg PO DAILY Rx Instructions: must be taken on empty stomach, at least 1 hr before or 2 hrs after a meal/food polyethylene glycol 3350 [Gavilax] 17 gram powder in packet 8 g PO DAILY alpha lipoic acid 150 mg capsule 450 mg PO DAILY amoxicillin-pot clavulanate 875-125 mg tablet 1 tab PO BID Qty: 20 0RF Stand Alone Forms: Patient Portal/API
--- NOTE | 2024-11-21 10:02 | EKG_ITS ---
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
[2024-11-21 10:21] LABS: Add Manual Diff / Slide Review NO; Hematocrit 39.0 % (41-53); Hemoglobin 13.4 g/dL (13.5-17.5); Lymphocytes Absolute Auto 1600 /uL (1100-4500); Mean Corpuscular HGB Conc 34.3 % (30-36); Mean Corpuscular Hemoglobin 30.4 PG (26-34); Mean Corpuscular Volume 88.8 fL (80-100); Platelet Count 236 X10^3/uL (150-400)
[2024-11-21 10:31] LABS: Alanine Aminotransferase 21 IU/L (<50); Albumin 4.2 g/dL (3.5-5.0); Albumin Globulin Ratio 1.4 (1.0-2.8); Alkaline Phosphatase 239 U/L (38-126); Blood Urea Nitrogen 25 mg/dL (9-20); Calcium 9.0 mg/dL (8.4-10.2); Carbon Dioxide 23 mmol/L (22-32); Chloride 106 mmol/L (98-107); Estimated Glomerular Filt Rate > 60 mL/min (>60); Globulin 3.1 g/dL (1.7-4.1); Glucose 201 mg/dL (70-99); HEMOLYSIS < 15 (0-50); Lipase 70 U/L (23-300); Magnesium 1.8 mg/dL (1.6-2.3); Potassium 3.9 mmol/L (3.4-5.1); Sodium 137 mmol/L (137-145); Total Protein 7.3 g/dL (6.3-8.2)
[2024-11-21 10:42] LABS: NT-proBNP (BNP-Adult 18+) 532 pg/mL (<125); Troponin I 0.012 ng/mL (0.01-0.034)
--- NOTE | 2024-11-21 10:52 | DI.CT.S_ITS ---
PROCEDURE: CT ANGIO CHEST PE PROTOCOL INDICATIONS: short of breath high dimer prostate cancer TECHNIQUE: After the administration of intravenous contrast, 2 mm thick sections acquired from the pulmonary apices to the posterior costophrenic angles. 3-dimensional maximum intensity projection (MIP) coronal and sagittal reformats were then acquired through the thorax. For radiation dose reduction, the following was used: automated exposure control, adjustment of mA and/or kV according to patient size. COMPARISON: [facility], CT, CT ANGIO CHEST PE PROTOCOL, 06/12/2024, 1:23. FINDINGS: Image quality: Diagnostic. Pulmonary arteries: Pulmonary arteries are normal in size, and demonstrate no intraluminal filling defects to suggest central pulmonary embolism. Lower Neck: No enlarged lymph nodes. Thyroid: No thyroid nodules which require sonographic follow up, per consensus guidelines. Axillae: No enlarged lymph nodes. Chest Wall: Unremarkable. Bones: Numerous scattered sclerotic lesions are seen throughout visualized bony pelvis particularly involving right scapular and upper thoracic vertebral bodies. Postsurgical changes are seen in lower cervical and upper thoracic spine. Additional sclerotic lesions also seen scattered in mid to lower thoracic spine vertebral bodies, a mid sternum, and bilateral ribs as well as left scapular extending to glenoid. Lungs and Pleura: No pneumothorax or pleural effusions. Scattered scarring/atelectasis in posterior and lateral periphery of bilateral mid to lower lung zone is seen. No consolidation or suspicious nodules. Heart: Heart size is mildly enlarged. No pericardial effusion. Thoracic Vessels: No aortic aneurysm. Mediastinum and Koki: No enlarged lymph nodes. Esophagus: No wall thickening. No significant hiatal hernia. Upper Abdomen: Visualized upper abdomen solid organs and bowel loops appear normal. IMPRESSION: 1. No pulmonary embolus. Ascending thoracic aorta size is in the upper limits of normal and measures 4 cm in size. No gross dissection. 2. Mild cardiomegaly, no pericardial effusion. No mediastinal or hilar lymphadenopathy. 3. Scattered scarring/atelectasis in bilateral lung [place]. No suspicious pulmonary nodule or mass is seen. No pleural effusion or pneumothorax. 4. 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 No pathologic fracture. Dictated by: Juan Manuel Brown M.D. on 11/21/2024 at 12:18 Approved by: Juan Manuel Brown M.D. on 11/21/2024 at 12:22
[2024-11-21] MEDS: FUROSEMIDE 40 MG/4 ML VIAL 20 MG IV (12:20)
[2024-11-21 13:00] LABS: Culture Indicated Urine Cult Not Indicated
== END 2024-11-21 13:09 | disposition home or self-care (01) ==
PROVIDERS: Emergency Provider Emergency Medicine
DX: R60.0 Localized edema (principal); C61 Malignant neoplasm of prostate; Z92.21 Personal history of antineoplastic chemotherapy
CPT/HCPCS: 36415; 71045; 71275; 80053; 81003; 81015; 83690; 83735; 83880; 84484; 85025; 85379; 93005; 93010; 96374; 99284; J1938; Q9967